=== PATIENT | female | born 1970 | race Caucasian/White ===

== ENCOUNTER 2017-04-04 14:39 | Inpatient (IN) | payer MEDICAID ==
[~2017-04-04] VITALS: Ht 160 cm; Wt 75.6 kg
[2017-04-04] MEDS ORDERED: ONDANSETRON 4 MG INJ IV STA (15:42)
[2017-04-04] MEDS ORDERED: KETOROLAC 30 MG INJ IV STA (15:42)
--- NOTE | 2017-04-04 15:50 | ERD ---
ER Documentation Chief Complaint Date/Time DATE: 04/04/17 TIME: 15:47 Chief Complaint right flank pain, vomiting and fever x 2 days HPI Patient is a 46-year-old female with no past medical history presents to the emergency department for concerns of right-sided flank pain, fevers and vomiting 2 days. Patient states the right flank pain is episodic in nature. Patient states the pain does radiate to her front right lower quadrant. Patient states she has been taking Advil which does relieve her symptoms. Patient last took Advil 1 tab around 1 PM today. Patient reports tactile fevers and chills. Patient also does admits to dysuria, frequency and urgency. Patient denies any hematuria. Patient denies any history of kidney stones. Patient denies any recent travel. No sick contacts. ROS All systems reviewed and are negative except as per history of present illness. Medications Home Meds Active Scripts Ibuprofen* (Motrin*) 400 Mg Tab, 400 MG PO Q6, #30 TAB Prov:MATTHEW BARRERA PA-C 04/04/17 Cephalexin* (Keflex*) 500 Mg Capsule, 500 MG PO TID for 14 Days, CAP Prov:MATTHEW BARRERA-C 04/04/17 Discontinued Scripts Cephalexin* (Keflex*) 500 Mg Capsule, 500 MG PO TID for 10 Days, CAP Prov:MATTHEW BARRERA PA-C 04/04/17 PMhx/Soc Medical and Surgical Hx: pt denies Medical Hx, pt denies Surgical Hx Hx Alcohol Use: Yes (Socially) Hx Substance Use: No Hx Tobacco Use: No Smoking Status: Never smoker FmHx Family History: diabetes Physical Exam Vitals Vital Signs Date Time Temp Pulse Resp B/P Pulse Ox O2 Delivery O2 Flow Rate FiO2 04/04/17 19:38 105.7 110 18 120/78 95 Room Air 04/04/17 14:43 102.8 126 18 146/67 98 Physical Exam GENERAL: Well-developed, well-nourished female. Appears in no acute distress. HEAD: Normocephalic, atraumatic. EYES: Pupils are equally reactive bilaterally. EOMs grossly intact. No conjunctival erythema. ENT: Moist mucous membranes. No uvula deviation. No kissing tonsils. NECK: Supple. No meningismus. Normal range of motion of the neck. LUNG: Clear to auscultation bilaterally. No rhonchi, wheezing, rales or coarse breath sounds. HEART: Regular rate and rhythm. No murmurs, rubs or gallops. ABDOMEN: Soft, nontender, and nondistended. Positive bowel sounds in all four quadrants. No rebound tenderness, no guarding. (-) McBurney's point tenderness. + Right CVA tenderness. BACK: No midline tenderness. EXTREMITIES: Equal pulses bilaterally. No peripheral clubbing, cyanosis or edema. No unilateral leg swelling. NEUROLOGIC: Alert and oriented. Moving all four extremities without any difficulty. Normal speech. Steady gait. SKIN: Normal color. Warm and dry. No rashes or lesions. Result Diagram: 04/04/17 1616 04/04/17 1616 Results 24 hrs Laboratory Tests Test 04/04/17 16:16 White Blood Count 9.110^3/ul Red Blood Count 5.0310^6/ul Hemoglobin 13.3g/dl Hematocrit 38.8% Mean Corpuscular Volume 77.1fl Mean Corpuscular Hemoglobin 26.4pg Mean Corpuscular Hemoglobin Concent 34.3g/dl Red Cell Distribution Width 14.3% Platelet Count 38243^3/UL Mean Platelet Volume 9.5fl Neutrophils % 82.5% Lymphocytes % 9.9% Monocytes % 7.2% Eosinophils % 0.0% Basophils % 0.1% Nucleated Red Blood Cells % 0.0/100WBC Neutrophils # 7.510^3/ul Lymphocytes # 0.910^3/ul Monocytes # 0.710^3/ul Eosinophils # 0.010^3/ul Basophils # 0.010^3/ul Nucleated Red Blood Cells # 0.010^3/ul Urine Color YELLOW Urine Clarity SLIGHTLY CLOUDY Urine pH 6.0 Urine Specific [place] 1.033 Urine Ketones TRACEmg/dL Urine Nitrite NEGATIVEmg/dL Urine Bilirubin NEGATIVEmg/dL Urine Urobilinogen NEGATIVEmg/dL Urine Leukocyte Esterase 2+Ar/ul Urine Microscopic RBC 4/HPF Urine Microscopic WBC 153/HPF Urine Squamous Epithelial Cells FEW/HPF Urine Bacteria FEW/HPF Urine Hemoglobin 2+mg/dL Urine Glucose 3+mg/dL Urine Total Protein 1+mg/dl Sodium Level 134mmol/L Potassium Level 3.8mmol/L Chloride Level 89mmol/L Carbon Dioxide Level 27mmol/L Anion Gap 22 Blood Urea Nitrogen 12mg/dl Creatinine 0.72mg/dl Glucose Level 389mg/dl Lactic Acid Level 2.0mmol/L Calcium Level 9.2mg/dl Total Bilirubin 1.1mg/dl Direct Bilirubin 0.00mg/dl Indirect Bilirubin 1.1mg/dl Aspartate Amino Transf (AST/SGOT) 28IU/L Alanine Aminotransferase (ALT/SGPT) 62IU/L Alkaline Phosphatase 106IU/L Total Protein 7.8g/dl Albumin 4.1g/dl Globulin 3.70g/dl Albumin/Globulin Ratio 1.10 Lipase 92U/L Current Medications Medications (Trade) Dose Ordered Sig/Marleni Route PRN Reason Start Time Stop Time Status Last Admin Dose Admin Ketorolac Tromethamine (Toradol) 30 mg ONCE STAT IV 04/04/17 15:42 04/04/17 15:45 DC 04/04/17 16:05 Ondansetron HCl 4 mg 4 mg ONCE STAT IV 04/04/17 15:42 04/04/17 15:45 DC 04/04/17 16:05 Sodium Chloride (NS) 1,000 ml @ 1,000 mls/hr Q1H ONCE IV 04/04/17 16:00 04/04/17 16:59 DC 04/04/17 16:05 Ceftriaxone Sodium (Rocephin) 1 gm ONCE ONCE IVPB 04/04/17 18:00 04/04/17 18:01 DC 04/04/17 17:49 Acetaminophen (Tylenol Tab) 1,000 mg ONCE STAT PO 04/04/17 18:52 04/04/17 18:53 DC 04/04/17 18:57 Procedures/MDM ED COURSE: The patient was stable throughout ED course. I kept the patient and/or family informed of laboratory and diagnostic imaging results throughout the ED course. DIAGNOSTIC IMAGING: Read by radiologist. DIAGNOSTIC IMAGING REPORT Patient: TYESHA FORTUNE : 1970 Age: 46 Sex: F [id number] DOS: 04/04/17 1542 Ordering MD: MATTHEW BARRERA PA-C Location: [facility] Room/Bed: PROCEDURE: CT Abdomen and Pelvis without contrast. CLINICAL INDICATION: Right flank pain with fever and vomiting. TECHNIQUE: CT scan of the abdomen and pelvis without contrast was performed on a multidetector high-resolution CT scanner. The patient was scanned without intravenous contrast. Coronal and sagittal reformatted images were obtained from the axial source images. Images were reviewed on a high-resolution PACS workstation. The total exam CTDI equals 10.42 mGy and the total exam DLP equals 616.60 mGy-cm. One or the following dose reduction techniques were used: -Automated exposure control. -Adjustment of the mA and/or KV according to patient's size. -Use of iterative reconstruction technique. COMPARISON: None. FINDINGS: Lung Bases: Unremarkable. GI:. Unremarkable. Liver: There is mild hepatomegaly measuring 21.0 cm in length with a decrease in the overall attenuation of the liver suggesting mild diffuse steatosis. Gallbladder: There is cholelithiasis without evidence of gallbladder wall thickening or biliary tree dilatation. Pancreas: Unremarkable. Spleen: Unremarkablel Adrenals: Unremarkable. Kidneys: There is no definite urolithiasis. There is facet edematous appearance of the right kidney with mild pyelocaliectasis and ureterectasis involving the proximal 2/3 of the ureter no definite ureteral lithiasis is seen. There is some perinephric stranding about the right kidney Bladder: Unremarkable. Pelvic Organs: Unremarkable. Skeleton: Normal for age. Other: There is a tiny umbilical hernia containing fat only. IMPRESSION: 1. Mild hepatosplenomegaly with a decrease in the overall attenuation of the liver suggesting diffuse steatosis. 2. Cholelithiasis without evidence of biliary tree dilatation. 3. Mild pyelocaliectasis and ureterectasis with edematous changes and perinephric stranding about the right kidney without evidence of ureteral lithiasis. This may indicate mild postobstructive edema from a recently passed stone. 4. Normal appearing appendix visualized. 5. Short segment of jejunum in the lower left abdomen but demonstrates a mild circumferential mucosal thickening of uncertain significance. This could indicate a mild localized enteritis. 6. Tiny umbilical hernia containing fat only. Note: A call report was made to Matthew Barrera Pa-c on 04/04/2017 4:52:25 PM. DIAGNOSTIC IMAGING REPORT Patient: TYESHA FORTUNE : 1970 Age: 46 Sex: F MR #: [id number] DOS: 04/04/17 1654 Ordering MD: MATTHEW BARRERA PA-C Location: [facility] Room/Bed: PROCEDURE: US Abdomen. CLINICAL INDICATION: abdominal pain TECHNIQUE: Multiple real-time images were acquired of the patient's right upper quadrant abdomen and retroperitoneum utilizing a high resolution transducer. COMPARISON: CT from 04/04/2017 FINDINGS: The liver demonstrates increased echogenicity. The liver is enlarged in size and no focal solid lesions are seen. The liver measures 21.1 cm in length. The portal vein is patent with normal direction of flow. No intrahepatic biliary dilatation is seen. Multiple calcified gallstones are identified within the gallbladder. There is no pericholecystic fluid or gallbladder wall thickening. The common bile duct measures 3.6 mm in maximal dimension. The pancreas is not well seen. No free fluid is identified. The right kidney is normal in size, and demonstrate normal echogenicity and cortical thickness. The right kidney measures 11.0 cm in long dimension. There is no evidence of hydronephrosis. There are no kidney stones. RPTAT: AA IMPRESSION: Cholelithiasis with no evidence of gallbladder wall thickening or pericholecystic fluid. Mild hepatomegaly with diffuse fatty infiltration of the liver. No evidence of hydronephrosis. .Hesham Ryan MD, Date Time Electronically viewed and signed by .Hesham Ryan MD, MD on 04/04/2017 17: 20 .S/ CC: MATTHEW BARRERA PA-C RPTAT: AACC Physician Doris Date Time Electronically viewed and signed by Physician Doris on 04/04/2017 16: 55 JH/ CC: MATTHEW BARRERA PA-C PROCEDURES: None. MEDICATIONS GIVEN: IV fluids, Toradol, Zofran Patient tolerated medication well with no adverse reactions. Patient reported improvement in pain. MEDICAL DECISION MAKING: This is a 46-year-old female presents with right flank pain intermittent fevers and vomiting 2 days. Patient also reported dysuria and urinary frequency. Vital signs were reviewed. Was febrile initial presentation with a temperature of 102.8 Fahrenheit. Patient was given Toradol here in the emergency department. Patient's temperature was noted to be down trending prior to discharge. Patient's pulse also did significantly improved.. Abdominal exam revealed right sided CVA tenderness. CBC showed no evidence of severe anemia. Patient did have a white count of 9.1. Patient's lactic acid was noted to be 2.0. CMP showed no evidence of severe acidosis, alkalosis, renal failure, or liver disease. Since glucose level was noted to be 398. Lipase showed no evidence of acute pancreatitis. Urinalysis did show 153 WBCs, 3+ glucose and 2 + leukocyte esterase. Urine test was negative. CT scan of the abdomen and pelvis showed 1. Mild hepatosplenomegaly with a decrease in the overall attenuation of the liver suggesting diffuse steatosis. 2. Cholelithiasis without evidence of biliary tree dilatation. 3. Mild pyelocaliectasis and ureterectasis with edematous changes and perinephric stranding about the right kidney without evidence of ureteral lithiasis. This may indicate mild postobstructive edema from a recently passed stone. 4. Normal appearing appendix visualized. 5. Short segment of jejunum in the lower left abdomen but demonstrates a mild circumferential mucosal thickening of uncertain significance. This could indicate a mild localized enteritis. 6. Tiny umbilical hernia containing fat only. Right upper quadrant ultrasound showed Cholelithiasis with no evidence of gallbladder wall thickening or pericholecystic fluid. Mild hepatomegaly with diffuse fatty infiltration of the liver. No evidence of hydronephrosis At this time, patient's presentation is most consistent with . I have a much lower clinical concern for acute coronary syndrome, AAA, mesenteric ischemia, lower lobe pneumonia, DKA, bowel perforation, cholecystitis, choledocholithiasis , ascending cholangitis, hepatic abscess, pancreatitis, PUD, gastritis, GERD, splenic rupture, diverticulitis, UTI, pyelonephritis, nephrolithiasis, appendicitis, constipation, , ectopic , PID, ovarian torsion or tubo-ovarian abscess. PRESCRIPTIONS: DISCHARGE: At this time, patient is stable for discharge and outpatient management. I have instructed the patient to follow-up with his/her primary care physician in 1-2 days. I have instructed the patient to promptly return to the ER at any time for any new or worsening symptoms including increased pain, nausea, vomiting, diarrhea, fever, weakness or LOC. The patient and/or family expressed understanding of and agreement with this plan. All questions were answered. Home care instructions were provided. Departure Diagnosis: Primary Impression: Pyelonephritis Additional Impressions: Kidney stone Cholelithiasis Cholelithiasis location: other site Biliary obstruction: without biliary obstruction Qualified Code: K80.80 - Biliary calculus of other site without obstruction Condition: Stable Additional Instructions: Call your primary care doctor TOMORROW for an appointment during the next 1-2 days.See the doctor sooner or return here if your condition worsens before your appointment time. MATTHEW BARRERA PA-C Apr 04, 2017 15:50
[2017-04-04] MEDS ORDERED: SOD CHLORIDE 0.9% 1,000 ML IV ONE (16:00)
[2017-04-04 16:35] LABS: BASOPHILS % 0.1 % (0.0-2.0); HEMATOCRIT 38.8 % (37.0-47.0); HEMOGLOBIN 13.3 g/dl (12.0-16.0); LYMPHOCYTES # 0.9 10^3/ul (0.8-2.9); LYMPHOCYTES % 9.9 % (15.0-51.0); MEAN CORPUSCULAR HEMOGLOBIN 26.4 pg (29.0-33.0); MEAN CORPUSCULAR HGB CONC 34.3 g/dl (32.0-37.0); MEAN CORPUSCULAR VOLUME 77.1 fl (82.0-101.0); MEAN PLATELET VOLUME 9.5 fl (7.4-10.4); MONOCYTE # 0.7 10^3/ul (0.3-0.9); MONOCYTES % 7.2 % (0.0-11.0); NEUTROPHIL # 7.5 10^3/ul (1.6-7.5); NEUTROPHILS % 82.5 % (39.0-77.0); PLATELET COUNT 254 10^3/UL (140-415); RED BLOOD COUNT 5.03 10^6/ul (4.20-5.40); RED CELL DISTRIBUTION WIDTH 14.3 % (11.5-14.5); WHITE BLOOD COUNT 9.1 10^3/ul (4.8-10.8)
[2017-04-04 16:40] LABS: ADD UMIC YES; UR ASCORBIC ACID NEGATIVE (NEGATIVE); UR BACTERIA FEW /HPF (NONE SEEN); UR BILIRUBIN (Dip) NEGATIVE (NEGATIVE); UR BLOOD (Dip) 2+ mg/dL (NEGATIVE); UR CLARITY SLIGHTLY CLOUDY (CLEAR); UR COLOR YELLOW (YELLOW); UR GLUCOSE (Dip) 3+ mg/dL (NEGATIVE); UR KETONES (Dip) TRACE mg/dL (NEGATIVE); UR LEUKOCYTE ESTERASE (Dip) 2+ Leu/ul (NEGATIVE); UR NITRITE (Dip) NEGATIVE (NEGATIVE); UR RBC 4 /HPF (0-5); UR SPECIFIC GRAVITY (Dip) 1.033 (1.003-1.030); UR SQUAMOUS EPITHELIAL CELL FEW /HPF (FEW); UR TOTAL PROTEIN (Dip) 1+ mg/dl (NEGATIVE); UR UROBILINOGEN (Dip) NEGATIVE (NEGATIVE)
--- NOTE | 2017-04-04 16:55 | RADRPT ---
PROCEDURE: CT Abdomen and Pelvis without contrast. CLINICAL INDICATION: Right flank pain with fever and vomiting. TECHNIQUE: CT scan of the abdomen and pelvis without contrast was performed on a multidetector hig h-resolution CT scanner. The patient was scanned without intravenous contrast. Coronal and sagittal reformatted images were obtained from the axial source images. Images were reviewed on a high-resol [employer] PACS workstation. The total exam CTDI equals 10.42 mGy and the total exam DLP equals 616.60 mG y-cm. One or the following dose reduction techniques were used: -Automated exposure control. -Adjustment of the mA and/or KV according to patient's size. -Use of iterative reconstruction technique. COMPARISON: None. FINDINGS: Lung Bases: Unremarkable. GI:. Unremarkable. Liver: There is mild hepatomegaly measuring 21.0 cm in length with a decrease in the overall attenua tion of the liver suggesting mild diffuse steatosis. Gallbladder: There is cholelithiasis without evidence of gallbladder wall thickening or biliary tree dilatation. Pancreas: Unremarkable. Spleen: Unremarkablel Adrenals: Unremarkable. Kidneys: There is no definite urolithiasis. There is facet edematous appearance of the right kidney with mild pyelocaliectasis and ureterectasis involving the proximal 2/3 of the ureter no definite u reteral lithiasis is seen. There is some perinephric stranding about the right kidney Bladder: Unremarkable. Pelvic Organs: Unremarkable. Skeleton: Normal for age. Other: There is a tiny umbilical hernia containing fat only. IMPRESSION: 1. Mild hepatosplenomegaly with a decrease in the overall attenuation of the liver suggesting diffus e steatosis. 2. Cholelithiasis without evidence of biliary tree dilatation. 3. Mild pyelocaliectasis and ureterectasis with edematous changes and perinephric stranding about t he right kidney without evidence of ureteral lithiasis. This may indicate mild postobstructive lorna a from a recently passed stone. 4. Normal appearing appendix visualized. 5. Short segment of jejunum in the lower left abdomen but demonstrates a mild circumferential mucos al thickening of uncertain significance. This could indicate a mild localized enteritis. 6. Tiny umbilical hernia containing fat only. Note: A call report was made to Song Alcantar Pa-c on 04/04/2017 4:52:25 PM. RPTAT: AACKristy Nils Carey, Physician Date Time Electronically viewed and signed by Nils Carey, Physician on 04/04/2017 16:55 /
[2017-04-04 16:59] LABS: ALBUMIN 4.1 g/dl (3.3-4.9); ALBUMIN/GLOBULIN RATIO 1.1; BILIRUBIN,INDIRECT 1.1 mg/dl (0-1.1); BILIRUBIN,TOTAL 1.1 mg/dl (0.2-1.3); CALCIUM 9.2 mg/dl (8.4-10.2); CREATININE 0.72 mg/dl (0.44-1.00); POTASSIUM 3.8 mmol/L (3.5-5.1); TOTAL PROTEIN 7.8 g/dl (6.1-8.1)
--- NOTE | 2017-04-04 17:20 | RADRPT ---
PROCEDURE: US Abdomen. CLINICAL INDICATION: abdominal pain TECHNIQUE: Multiple real-time images were acquired of the patient's right upper quadrant abdomen a nd retroperitoneum utilizing a high resolution transducer. COMPARISON: CT from 04/04/2017 FINDINGS: The liver demonstrates increased echogenicity. The liver is enlarged in size and no focal solid les ions are seen. The liver measures 21.1 cm in length. The portal vein is patent with normal direction of flow. No intrahepatic biliary dilatation is seen. Multiple calcified gallstones are identified within the gallbladder. There is no pericholecystic fl uid or gallbladder wall thickening. The common bile duct measures 3.6 mm in maximal dimension. The pancreas is not well seen. No free fluid is identified. The right kidney is normal in size, and demonstrate normal echogenicity and cortical thickness. The right kidney measures 11.0 cm in long dimension. There is no evidence of hydronephrosis. There are no kidney stones. RPTAT: AA IMPRESSION: Cholelithiasis with no evidence of gallbladder wall thickening or pericholecystic fluid. Mild hepatomegaly with diffuse fatty infiltration of the liver. No evidence of hydronephrosis. .Hesham Ryan MD, Date Time Electronically viewed and signed by .Hesham Ryan MD, MD on 04/04/2017 17:20 .S/
[2017-04-04] MEDS ORDERED: CEFTRIAXONE 1 GM INJ IVPB ONE (18:00)
[2017-04-04] MEDS ORDERED: CEPH-443 PO ×2 (18:05→18:10)
[2017-04-04] MEDS ORDERED: IBUP400T22 PO (18:10)
[2017-04-04] MEDS ORDERED: ACETAMINOPHEN 500 MG TAB PO STA (18:52)
[2017-04-04] MEDS ORDERED: SODIUM CHLORIDE 0.9% 1L BAG IV* STA (19:57)
[2017-04-04] MEDS ORDERED: SOD CHLORIDE 0.9% 1,000 ML IV SCH (20:39)
--- NOTE | 2017-04-04 20:39 | ERA ---
ER Documentation Chief Complaint Date/Time DATE: 04/04/17 TIME: 20:33 Chief Complaint right flank pain, vomiting and fever x 2 days HPI This is a 46-year-old female who was originally seen in the ED 2 and care transferred to mt. This is a female who has had right flank pain for 2 days with fever with nausea vomiting. The pain is described as constant dull and achy. Pain does not radiate. She does have dysuria no hematuria no pain in the abdomen. No diarrhea. No history of kidney stones. Pain is not worse after eating. No pain in the right upper quadrant ROS All systems reviewed and are negative except as per history of present illness. Medications Home Meds Active Scripts Ibuprofen* (Motrin*) 400 Mg Tab, 400 MG PO Q6, #30 TAB Prov:MATTHEW ALCANTAR PA-C 04/04/17 Cephalexin* (Keflex*) 500 Mg Capsule, 500 MG PO TID for 14 Days, CAP Prov:MATTHEW ALCANTAR PA-C 04/04/17 Discontinued Scripts Cephalexin* (Keflex*) 500 Mg Capsule, 500 MG PO TID for 10 Days, CAP Prov:MATTHEW ALCANTAR PA-C 04/04/17 Allergies Allergies: Coded Allergies: No Known Allergy (Unverified , 04/04/17) PMhx/Soc Medical and Surgical Hx: pt denies Medical Hx, pt denies Surgical Hx Hx Alcohol Use: Yes (Socially) Hx Substance Use: No Hx Tobacco Use: No Smoking Status: Never smoker FmHx Family History: No coronary disease Physical Exam Vitals Vital Signs Date Time Temp Pulse Resp B/P Pulse Ox O2 Delivery O2 Flow Rate FiO2 04/04/17 19:38 105.7 110 18 120/78 95 Room Air 04/04/17 18:50 102.5 103 22 112/71 96 Room Air 04/04/17 14:43 102.8 126 18 146/67 98 Physical Exam Const: Well-developed, well-nourished Head: Atraumatic, normocephalic Eyes: Normal Conjunctiva, PERRLA, EOMI, normal sclera, no nystagmus ENT: Normal External Ears, Nose and Mouth, moist mucus membranes. Neck: Full range of motion. No meningismus, no lymphadenopathy. Resp: Clear to auscultation bilaterally, no wheezing, rhonchi, rales Cardio: Tachycardia, no murmurs, S1 S2 present Abd: Soft, non tender x 4, non distended. Normal bowel sounds, no guarding or rebound, no pulsitile abdominal masses or bruits Skin: No petechiae or rashes, no ecchymosis , no maculopapular rash Back: No midline pain positive right flank tenderness Ext: No cyanosis, or edema, FROM x 4, normal inspection, neurovascularly intact x 4 Neur: Awake and alert, STR 5/5 x 4, sensation intact x 4, no focal findings, cerebellum intact Psych: Normal Mood and Affect Result Diagram: 04/04/17 1616 04/04/17 1616 Results 24 hrs Laboratory Tests Test 04/04/17 16:16 White Blood Count 9.110^3/ul Red Blood Count 5.0310^6/ul Hemoglobin 13.3g/dl Hematocrit 38.8% Mean Corpuscular Volume 77.1fl Mean Corpuscular Hemoglobin 26.4pg Mean Corpuscular Hemoglobin Concent 34.3g/dl Red Cell Distribution Width 14.3% Platelet Count 24488^3/UL Mean Platelet Volume 9.5fl Neutrophils % 82.5% Lymphocytes % 9.9% Monocytes % 7.2% Eosinophils % 0.0% Basophils % 0.1% Nucleated Red Blood Cells % 0.0/100WBC Neutrophils # 7.510^3/ul Lymphocytes # 0.910^3/ul Monocytes # 0.710^3/ul Eosinophils # 0.010^3/ul Basophils # 0.010^3/ul Nucleated Red Blood Cells # 0.010^3/ul Urine Color YELLOW Urine Clarity SLIGHTLY CLOUDY Urine pH 6.0 Urine Specific [place] 1.033 Urine Ketones TRACEmg/dL Urine Nitrite NEGATIVEmg/dL Urine Bilirubin NEGATIVEmg/dL Urine Urobilinogen NEGATIVEmg/dL Urine Leukocyte Esterase 2+Ar/ul Urine Microscopic RBC 4/HPF Urine Microscopic WBC 153/HPF Urine Squamous Epithelial Cells FEW/HPF Urine Bacteria FEW/HPF Urine Hemoglobin 2+mg/dL Urine Glucose 3+mg/dL Urine Total Protein 1+mg/dl Sodium Level 134mmol/L Potassium Level 3.8mmol/L Chloride Level 89mmol/L Carbon Dioxide Level 27mmol/L Anion Gap 22 Blood Urea Nitrogen 12mg/dl Creatinine 0.72mg/dl Glucose Level 389mg/dl Lactic Acid Level 2.0mmol/L Calcium Level 9.2mg/dl Total Bilirubin 1.1mg/dl Direct Bilirubin 0.00mg/dl Indirect Bilirubin 1.1mg/dl Aspartate Amino Transf (AST/SGOT) 28IU/L Alanine Aminotransferase (ALT/SGPT) 62IU/L Alkaline Phosphatase 106IU/L Total Protein 7.8g/dl Albumin 4.1g/dl Globulin 3.70g/dl Albumin/Globulin Ratio 1.10 Lipase 92U/L Current Medications Medications (Trade) Dose Ordered Sig/Marleni Route PRN Reason Start Time Stop Time Status Last Admin Dose Admin Ketorolac Tromethamine (Toradol) 30 mg ONCE STAT IV 04/04/17 15:42 04/04/17 15:45 DC 04/04/17 16:05 Ondansetron HCl 4 mg 4 mg ONCE STAT IV 04/04/17 15:42 04/04/17 15:45 DC 04/04/17 16:05 Sodium Chloride (NS) 1,000 ml @ 1,000 mls/hr Q1H ONCE IV 04/04/17 16:00 04/04/17 16:59 DC 04/04/17 16:05 Ceftriaxone Sodium (Rocephin) 1 gm ONCE ONCE IVPB 04/04/17 18:00 04/04/17 18:01 DC 04/04/17 17:49 Acetaminophen (Tylenol Tab) 1,000 mg ONCE STAT PO 04/04/17 18:52 04/04/17 18:53 DC 04/04/17 18:57 Sodium Chloride (NS) 2,250 ml BOLUS OVER 2 HOURS STAT IV* 04/04/17 19:57 04/04/17 20:09 DC 04/04/17 20:17 Procedures/MDM PROCEDURE: CT Abdomen and Pelvis without contrast. CLINICAL INDICATION: Right flank pain with fever and vomiting. TECHNIQUE: CT scan of the abdomen and pelvis without contrast was performed on a multidetector high-resolution CT scanner. The patient was scanned without intravenous contrast. Coronal and sagittal reformatted images were obtained from the axial source images. Images were reviewed on a high-resolution PACS workstation. The total exam CTDI equals 10.42 mGy and the total exam DLP equals 616.60 mGy-cm. One or the following dose reduction techniques were used: -Automated exposure control. -Adjustment of the mA and/or KV according to patient's size. -Use of iterative reconstruction technique. COMPARISON: None. FINDINGS: Lung Bases: Unremarkable. GI:. Unremarkable. Liver: There is mild hepatomegaly measuring 21.0 cm in length with a decrease in the overall attenuation of the liver suggesting mild diffuse steatosis. Gallbladder: There is cholelithiasis without evidence of gallbladder wall thickening or biliary tree dilatation. Pancreas: Unremarkable. Spleen: Unremarkablel Adrenals: Unremarkable. Kidneys: There is no definite urolithiasis. There is facet edematous appearance of the right kidney with mild pyelocaliectasis and ureterectasis involving the proximal 2/3 of the ureter no definite ureteral lithiasis is seen. There is some perinephric stranding about the right kidney Bladder: Unremarkable. Pelvic Organs: Unremarkable. Skeleton: Normal for age. Other: There is a tiny umbilical hernia containing fat only. IMPRESSION: 1. Mild hepatosplenomegaly with a decrease in the overall attenuation of the liver suggesting diffuse steatosis. 2. Cholelithiasis without evidence of biliary tree dilatation. 3. Mild pyelocaliectasis and ureterectasis with edematous changes and perinephric stranding about the right kidney without evidence of ureteral lithiasis. This may indicate mild postobstructive edema from a recently passed stone. 4. Normal appearing appendix visualized. 5. Short segment of jejunum in the lower left abdomen but demonstrates a mild circumferential mucosal thickening of uncertain significance. This could indicate a mild localized enteritis. 6. Tiny umbilical hernia containing fat only. Note: A call report was made to Matthew Alcantar Pa-c on 04/04/2017 4:52:25 PM. RPTAT: AACC Physician Doris Date Time Electronically viewed and signed by Physician Doris on 04/04/2017 16: 55 JH/ CC: MATTHEW ALCANTAR PA-C PROCEDURE: US Abdomen. CLINICAL INDICATION: abdominal pain TECHNIQUE: Multiple real-time images were acquired of the patient's right upper quadrant abdomen and retroperitoneum utilizing a high resolution transducer. COMPARISON: CT from 04/04/2017 FINDINGS: The liver demonstrates increased echogenicity. The liver is enlarged in size and no focal solid lesions are seen. The liver measures 21.1 cm in length. The portal vein is patent with normal direction of flow. No intrahepatic biliary dilatation is seen. Multiple calcified gallstones are identified within the gallbladder. There is no pericholecystic fluid or gallbladder wall thickening. The common bile duct measures 3.6 mm in maximal dimension. The pancreas is not well seen. No free fluid is identified. The right kidney is normal in size, and demonstrate normal echogenicity and cortical thickness. The right kidney measures 11.0 cm in long dimension. There is no evidence of hydronephrosis. There are no kidney stones. RPTAT: AA IMPRESSION: Cholelithiasis with no evidence of gallbladder wall thickening or pericholecystic fluid. Mild hepatomegaly with diffuse fatty infiltration of the liver. No evidence of hydronephrosis. .Hesham Ryan MD, MD Date Time Electronically viewed and signed by .Hesham Ryan MD, MD on 04/04/2017 17: 20 .S/ CC: MATTHEW ALCANTAR PA-C The patient was found to have a lactate of 2.0 and the physician digital assistant thought this is not sepsis. I did order blood cultures and sepsis fluid resuscitation. The patient was already given antibiotics before I saw the patient. For under sepsis criteria the patient got antibiotics before blood culture and did not receive IV fluid resuscitation in a timely fashion this was due to the physician digital assistant thinking that a lactate of 2.0 is not sepsis. Admit MDM: Patient's infectious symptoms have not stabilized and the patient is at risk of rapid decompensation. The patient will be admitted for careful hydration, antibiotic therapy, and infectious source control. Severe Sepsis criteria: Infectious source: Urine/pyelonephritis End organ damage indicated by: Pyelonephritis on CT scan Lactate > 2.0 mmol/L Hypotension (SBP < 90 or >40 mmHG drop or MAP < 65) Acute Resp Failure (sat < 92% w/o oxygen) Drawing In Hand > 2.0 INR > 1.5 Plt < 100 Bili > 2 Sepsis Management: Time of recognition of severe sepsis/septic shock: 1900 Within 3 hours of recognition: Blood cultures x 2 before broad-spectrum antibiotics: No 30 ml/kg NS bolus completed Initial lactate 2.0 Repeat lactate pending Accepting Care Team Current data and ongoing care discussed. Time: Admitting Physician: Justin Clinical Studies Specialist(s): Outstanding Data: None Critical Care Time: 30 minutes Treatments/Evaluations: Close monitoring and treatment of unstable vital signs, cardiorespiratory, and neurologic status, while maintaining tight balance of fluid, respiratory, and cardiac interventions. This includes the administration of emergency fluid management while maintaining close respiratory support as well as the provision of immediate and broad-spectrum antibiotic therapy, while performing a simultaneous assessment for possible sources in order to direct targeted therapy. This time includes discussing the case with the patient and the patient's family. This time also includes the consideration for invasive and chemical support to prevent cardiopulmonary collapse. This time does not include all procedures stated elsewhere in this record. This time also includes reviewing old records, labs and radiological studies. This time includes examining and re-examining the patient. Additionally, this time also includes arranging care with admitting and consulting physicians. Departure Diagnosis: Primary Impression: Sepsis Qualified Code: A41.9 - Sepsis, due to unspecified organism Additional Impressions: Pyelonephritis Cholelithiasis Qualified Code: K80.80 - Biliary calculus of other site without obstruction Condition: Stable Patient Instructions: Kidney Stone, Passed, Pyelonephritis, Female (Adult) Referrals: JERRY GURROLA MD,EFFIE WEN,STEVEN ELDRIDGE,DALIA GANDHI MD,RIDDHI TURPIN MD= [facility] YOU HAVE RECEIVED A MEDICAL SCREENING EXAM AND THE RESULTS INDICATE THAT YOU DO NOT HAVE A CONDITION THAT REQUIRES URGENT TREATMENT IN THE EMERGENCY DEPARTMENT. FURTHER EVALUATION AND TREATMENT OF YOUR CONDITION CAN WAIT UNTIL YOU ARE SEEN IN YOUR DOCTORS OFFICE WITHIN THE NEXT 1-2 DAYS. IT IS YOUR RESPONSIBILITY TO MAKE AN APPOINTMENT FOR FOLOW-UP CARE. IF YOU HAVE A PRIMARY DOCTOR --you should call your primary doctor and schedule an appointment IF YOU DO NOT HAVE A PRIMARY DOCTOR YOU CAN CALL OUR PHYSICIAN REFERRAL HOTLINE AT IF YOU CAN NOT AFFORD TO SEE A PHYSICIAN YOU CAN CHOSE FROM THE FOLLOWING [facility] [address] [facility] [address] [facility] [address] [facility] [address] [facility] [address] [facility]. [facility] [address] [facility]. [facility] YOU HAVE RECEIVED A MEDICAL SCREENING EXAM AND THE RESULTS INDICATE THAT YOU DO NOT HAVE A CONDITION THAT REQUIRES URGENT TREATMENT IN THE EMERGENCY DEPARTMENT. FURTHER EVALUATION AND TREATMENT OF YOUR CONDITION CAN WAIT UNTIL YOU ARE SEEN IN YOUR DOCTORS OFFICE WITHIN THE NEXT 1-2 DAYS. IT IS YOUR RESPONSIBILITY TO MAKE AN APPOINTMENT FOR FOLOW-UP CARE. IF YOU HAVE A PRIMARY DOCTOR --you should call your primary doctor and schedule and appointment IF YOU DO NOT HAVE A PRIMARY DOCTOR YOU CAN CALL OUR PHYSICIAN REFERRAL HOTLINE AT . IF YOU CAN NOT AFFORD TO SEE A PHYSICIAN YOU CAN CHOSE FROM THE FOLLOWING [facility]: [facility] [address] [place] [address] [facility] [address] [place] [address] [facility] [address] [place] [address] Additional Instructions: Call your primary care doctor TOMORROW for an appointment during the next 1-2 days.See the doctor sooner or return here if your condition worsens before your appointment time. Follow up with a urologist as needed if symptoms persist. BROOKLYNN BENÍTEZ DO Apr 04, 2017 20:38
[2017-04-04] MEDS ORDERED: ONDANSETRON 4 MG INJ IV PRN (21:00)
[2017-04-04] MEDS ORDERED: ACETAMINOPHEN 325 MG TAB PO PRN (21:00)
[2017-04-04 22:49] VITALS: TEMP 99.1
[2017-04-05] VITALS (12 sets, daily range): BP systolic 101–124; BP diastolic 56–67; PULSE 75–103; RESP 18–20; Ht 160 cm; Wt 75.6 kg
[2017-04-05] MEDS ORDERED: ACCU-CHEK XX SCH (02:00)
[2017-04-05] MEDS ORDERED: ONDANSETRON 4 MG INJ IV PRN (02:00)
[2017-04-05] MEDS ORDERED: VANCOMYCIN IV PER PHARMACY XX SCH (02:00)
[2017-04-05] MEDS ORDERED: morphine 4 MG/ML VIAL IV PRN (02:00)
[2017-04-05] MEDS: ACETAMINOPHEN 325 MG TAB PO PRN ×2 (02:26→14:50)
[2017-04-05] MEDS ORDERED: GLUCAGON 1 MG INJ IM PRN (02:30)
[2017-04-05] MEDS ORDERED: GLUCOSE GEL 15 GRAM TUBE PO PRN ×2 (02:30)
[2017-04-05] MEDS ORDERED: DEXTROSE 50% 50 ML SYRINGE IV PRN ×2 (02:30)
[2017-04-05] MEDS ORDERED: INSULIN GLARGINE [LANtus] 3 ML PEN SC ONE (02:30)
[2017-04-05] MEDS ORDERED: GLUCOSE GEL 15 GRAM TUBE BUCCAL PRN (02:30)
[2017-04-05] MEDS: ACCU-CHEK XX SCH (02:54)
[2017-04-05] MEDS ORDERED: VANCOMYCIN 1.5 GM in SOD CHLORIDE 0.9% 250 ML IVPB ONE (03:00)
--- NOTE | 2017-04-05 03:25 | HP ---
Date/Time of Note Date/Time of Note DATE: 04/05/17 TIME: 03:16 Assessment/Plan VTE Prophylaxis VTE Prophylaxis Intervention: SCD's Assessment/Plan Assessment/Plan 1. Sepsis, as evidenced by fever and tachycardia with a lactic acidosis, secondary to pyelonephritis -Broad-spectrum antibiotics, IV fluid and pain management -Follow-up on urine culture and blood culture -ID consult 2. Right sided pyelonephritis: See #1 3. Newly diagnosed diabetes -will check A1c in the morning -will be placed on insulin while in-house 4. Mild hyponatremia -Normal saline IV fluid HPI/ROS Admit Date/Time Admit Date/Time Apr 04, 2017 at 20:39 Hx of Present Illness This is a 46-year-old female with no significant past medical history who presented to the emergency department complaining of right flank pain and fever of 2 days duration. She also reported associated nausea and nonbloody nonbilious vomiting. When she presented to the ER she was febrile with a temperature of almost 103, which actually further increased to a temperature of 105.7. Her initial heart rate was 126. Lactic acid was 2. WBC is 9.1. Urinalysis consistent with UTI. CT abdomen pelvis shows right kidney perinephric stranding and edematous change likely a result of post obstructive edema from past. Also seen on the CAT scan was cholelithiasis without ductal dilatation. Laboratory results also showed sodium of 134 and a glucose of 389. Patient denies a history of diabetes and she said she does not remember the last time she was actually seen by a doctor. . PMH/Family/Social Social History Alcohol Use: none Smoking Status: Never smoker Drug Use: none Exam/Review of Systems Vital Signs Vitals Vital Signs Date Time Temp Pulse Resp B/P Pulse Ox O2 Delivery O2 Flow Rate FiO2 04/05/17 00:27 103 04/05/17 00:00 98.0 20 124/67 93 04/04/17 22:49 Room Air Exam Constitutional: alert, oriented, well developed Head: atraumatic, normocephalic Eyes: EOMI, PERRL Respiratory: clear to auscultation, normal air movement Cardiovascular: other (Tachycardic with regular rhythm) Gastrointestinal: other (Minimal right flank tenderness), soft Labs Result Diagram: 04/04/17 1616 04/04/17 1616 Medications Medications Current Medications Sodium Chloride (NS) 1,000 ml @ 80 mls/hr [id number] IV Last administered on 22:02; Admin Dose 80 MLS/HR; Start 04/04/17 at 20:39; Stop 04/05/17 at 09:08 Diagnostic Test (Pha) (Accu-Chek) 1 ea 02 XX Last administered on 04/05/17 02: 54; Admin Dose 1 EA; Start 04/05/17 at 02:00 Insulin Glargine (Lantus) 15 unit DAILY@20 SC ; Start 04/05/17 at 20:00 Acetaminophen (Tylenol Tab) 650 mg Q6H PRN PO PAIN AND OR ELEVATED TEMP Last administered on 04/05/17 02:26; Admin Dose 650 MG; Start 04/05/17 at 02:00 Ondansetron HCl (Zofran Inj) 4 mg Q6H PRN IV NAUSEA AND/OR VOMITING; Start 04/05 at 02:00 Morphine Sulfate 3 mg 3 mg Q4H PRN IV PAIN; Start 04/05/17 at 02:00 Cefepime HCl (Maxipime 1gm/50 ml (Pmx)) 50 ml @ 100 mls/hr Q12 IVPB ; Start 04/05/17 at 09:00 Miscellaneous Information 1 ea NOTE XX ; Start 04/05/17 at 02:30 Glucose (Glutose) 15 gm Q15M PRN PO DECREASED GLUCOSE; Start 04/05/17 at 02:30 Glucose (Glutose) 22.5 gm Q15M PRN PO DECREASED GLUCOSE; Start 04/05/17 at 02:30 Dextrose (D50w Syringe) 25 ml Q15M PRN IV DECREASED GLUCOSE; Start 04/05/17 at 02:30 Dextrose (D50w Syringe) 50 ml Q15M PRN IV DECREASED GLUCOSE; Start 04/05/17 at 02:30 Glucagon (Glucagen) 1 mg Q15M PRN IM DECREASED GLUCOSE; Start 04/05/17 at 02:30 Glucose 15 gm 15 gm Q15M PRN BUCCAL DECREASED GLUCOSE; Start 04/05/17 at 02:30 Vancomycin HCl 1.5 gm/Sodium Chloride 250 ml @ 83.333 mls/ hr ONCE ONCE IVPB ; Start 04/05/17 at 03:00; Stop 04/05/17 at 05:59 Vancomycin HCl (Vancocin) 250 ml @ 125 mls/hr Q12H IVPB ; Start 04/05/17 at 15: 00 TAZ PRIETO MD Apr 05, 2017 03:25
[2017-04-05 06:45] LABS: HEMATOCRIT 33.2 % (37.0-47.0); HEMOGLOBIN 10.9 g/dl (12.0-16.0); MEAN CORPUSCULAR HEMOGLOBIN 26.3 pg (29.0-33.0); MEAN CORPUSCULAR HGB CONC 32.8 g/dl (32.0-37.0); MEAN PLATELET VOLUME 9.8 fl (7.4-10.4); PLATELET COUNT 210 10^3/UL (140-415); RED BLOOD COUNT 4.15 10^6/ul (4.20-5.40); RED CELL DISTRIBUTION WIDTH 14.6 % (11.5-14.5); WHITE BLOOD COUNT 7.1 10^3/ul (4.8-10.8)
[2017-04-05 06:55] LABS: POSITIVE DIFF @See below
[2017-04-05 07:21] LABS: ALBUMIN 3.1 g/dl (3.3-4.9); ALBUMIN/GLOBULIN RATIO 0.93; BILIRUBIN,INDIRECT 0.5 mg/dl (0-1.1); BILIRUBIN,TOTAL 0.5 mg/dl (0.2-1.3); CALCIUM 7.8 mg/dl (8.4-10.2); CHOL/HDL RATIO 4.7 RATIO; CREATININE 0.66 mg/dl (0.44-1.00); MAGNESIUM 1.9 mg/dl (1.7-2.5); POTASSIUM 3.3 mmol/L (3.5-5.1); TOTAL PROTEIN 6.4 g/dl (6.1-8.1)
[2017-04-05] MEDS ORDERED: INSULIN ASPART [NOVOLOG] 3 ML PEN SC SCH (07:55)
[2017-04-05] MEDS: CEFEPIME 1GM/50 ML (PMX) 50 ML IVPB SCH ×2 (08:30→21:07)
[2017-04-05] MEDS: INSULIN ASPART [NOVOLOG] 3 ML PEN SC SCH ×6 (08:35→21:00)
[2017-04-05 13:48] LABS: LYMPHOCYTES # 1.2 10^3/ul (0.8-2.9); MONOCYTE # 0.4 10^3/ul (0.3-0.9); NEUTROPHIL # 4.6 10^3/ul (1.6-7.5)
[2017-04-05] MEDS ORDERED: VANCOMYCIN 1 GM in NS 250 ML IVPB SCH (15:00)
[2017-04-05] MEDS ORDERED: POTASSIUM CHLORIDE (SR) 20 MEQ TAB PO STA (15:38)
[2017-04-05] MEDS ORDERED: INSULIN GLARGINE [LANtus] 3 ML PEN SC SCH (20:00)
[2017-04-05] MEDS: INSULIN GLARGINE [LANtus] 3 ML PEN SC SCH (21:22)
[2017-04-06] VITALS (13 sets, daily range): BP systolic 106–139; BP diastolic 56–82; PULSE 77–85; RESP 16–20
[2017-04-06] MEDS: ACCU-CHEK XX SCH (02:00)
[2017-04-06 06:27] LABS: BASOPHILS % 0.4 % (0.0-2.0); EOSINOPHILS % 0.2 % (0.0-7.0); HEMATOCRIT 33.3 % (37.0-47.0); HEMOGLOBIN 10.8 g/dl (12.0-16.0); LYMPHOCYTES # 1.3 10^3/ul (0.8-2.9); LYMPHOCYTES % 23.8 % (15.0-51.0); MEAN CORPUSCULAR HEMOGLOBIN 25.8 pg (29.0-33.0); MEAN CORPUSCULAR HGB CONC 32.4 g/dl (32.0-37.0); MEAN CORPUSCULAR VOLUME 79.5 fl (82.0-101.0); MEAN PLATELET VOLUME 9.7 fl (7.4-10.4); MONOCYTE # 0.6 10^3/ul (0.3-0.9); MONOCYTES % 11.6 % (0.0-11.0); NEUTROPHIL # 3.4 10^3/ul (1.6-7.5); NEUTROPHILS % 63.6 % (39.0-77.0); PLATELET COUNT 209 10^3/UL (140-415); RED BLOOD COUNT 4.19 10^6/ul (4.20-5.40); RED CELL DISTRIBUTION WIDTH 14.6 % (11.5-14.5); WHITE BLOOD COUNT 5.3 10^3/ul (4.8-10.8)
[2017-04-06 06:48] LABS: CALCIUM 8.3 mg/dl (8.4-10.2); CREATININE 0.62 mg/dl (0.44-1.00); POTASSIUM 3.8 mmol/L (3.5-5.1)
[2017-04-06] MEDS: CEFEPIME 1GM/50 ML (PMX) 50 ML IVPB SCH (08:34)
[2017-04-06] MEDS: INSULIN ASPART [NOVOLOG] 3 ML PEN SC SCH ×7 (08:38→21:00)
--- NOTE | 2017-04-06 16:30 | PN ---
Date/Time of Note Date/Time of Note DATE: 04/06/17 TIME: 16:26 Assessment/Plan VTE Prophylaxis VTE Prophylaxis Intervention: ambulation Lines/Catheters IV [facility] Urinary Cath still in place: No Assessment/Plan Chief Complaint/Hosp Course 1. Sepsis, as evidenced by fever and tachycardia with a lactic acidosis secondary to pyelonephritis-improving, but still having fevers -Urine culture showing E. coli, DC cefepime and start Rocephin -Blood cultures are negative at 1 day 2. Mild hyponatremia-resolved 3. Newly diagnosed diabetes -A1c 10.1, family life educator consultation -Continue insulin regimen Prophylaxis: Ambulation Problems: Subjective 24 Hr Interval Summary Constitutional: no complaints Exam/Review of Systems Vital Signs Vitals Vital Signs Date Time Temp Pulse Resp B/P Pulse Ox O2 Delivery O2 Flow Rate FiO2 04/06/17 16:25 80 04/06/17 15:44 98.6 20 133/65 95 04/04/17 22:49 Room Air Intake and Output 04/05/17 04/05/17 04/06/17 15:00 23:00 07:00 Intake Total 1500 ml 500 ml Balance 1500 ml 500 ml Exam Constitutional: alert, oriented Respiratory: clear to auscultation Cardiovascular: regular rate and rhythm Gastrointestinal: soft, No distended Musculoskeletal: nl extremities to inspection Results Result Diagram: 04/06/17 0551 04/06/17 0551 Results 24 hrs Laboratory Tests Test 04/05/17 17:22 04/05/17 21:05 04/06/17 05:51 04/06/17 07:57 Bedside Glucose 195 165 175 White Blood Count 5.3 # Red Blood Count 4.19 L Hemoglobin 10.8 L Hematocrit 33.3 L Mean Corpuscular Volume 79.5 L Mean Corpuscular Hemoglobin 25.8 L Mean Corpuscular Hemoglobin Concent 32.4 Red Cell Distribution Width 14.6 H Platelet Count 209 Mean Platelet Volume 9.7 Neutrophils % 63.6 Lymphocytes % 23.8 Monocytes % 11.6 H Eosinophils % 0.2 Basophils % 0.4 Nucleated Red Blood Cells % 0.0 Neutrophils # 3.4 Lymphocytes # 1.3 Monocytes # 0.6 Eosinophils # 0.0 Basophils # 0.0 Nucleated Red Blood Cells # 0.0 Sodium Level 139 Potassium Level 3.8 Chloride Level 99 Carbon Dioxide Level 27 Anion Gap 17 H Blood Urea Nitrogen 9 Creatinine 0.62 Glucose Level 161 # Calcium Level 8.3 L Test 04/06/17 12:08 Bedside Glucose 161 Medications Medications Current Medications Diagnostic Test (Pha) (Accu-Chek) 1 ea 02 XX Last administered on 04/05/17 02: 54; Admin Dose 1 EA; Start 04/05/17 at 02:00 Acetaminophen (Tylenol Tab) 650 mg Q6H PRN PO PAIN AND OR ELEVATED TEMP Last administered on 04/05/17 14:50; Admin Dose 650 MG; Start 04/05/17 at 02:00 Ondansetron HCl (Zofran Inj) 4 mg Q6H PRN IV NAUSEA AND/OR VOMITING; Start 04/05 at 02:00 Morphine Sulfate 3 mg 3 mg Q4H PRN IV PAIN; Start 04/05/17 at 02:00 Cefepime HCl (Maxipime 1gm/50 ml (Pmx)) 50 ml @ 100 mls/hr Q12 IVPB Last administered on 04/06/17 08:34; Admin Dose 100 MLS/HR; Start 04/05/17 at 09:00 Miscellaneous Information 1 ea NOTE XX ; Start 04/05/17 at 02:30 Glucose (Glutose) 15 gm Q15M PRN PO DECREASED GLUCOSE; Start 04/05/17 at 02:30 Glucose (Glutose) 22.5 gm Q15M PRN PO DECREASED GLUCOSE; Start 04/05/17 at 02:30 Dextrose (D50w Syringe) 25 ml Q15M PRN IV DECREASED GLUCOSE; Start 04/05/17 at 02:30 Dextrose (D50w Syringe) 50 ml Q15M PRN IV DECREASED GLUCOSE; Start 04/05/17 at 02:30 Glucagon (Glucagen) 1 mg Q15M PRN IM DECREASED GLUCOSE; Start 04/05/17 at 02:30 Glucose (Glutose) 15 gm Q15M PRN BUCCAL DECREASED GLUCOSE; Start 04/05/17 at 02: 30 Insulin Glargine (Lantus) 16 unit DAILY@20 SC Last administered on 04/05/17 21: 22; Admin Dose 16 UNIT; Start 04/05/17 at 20:00 ALANA DEWITT Apr 06, 2017 16:30
[2017-04-06] MEDS: CEFTRIAXONE 1 GM/50 ML (PMX) 50 ML IVPB SCH (16:40)
[2017-04-06] MEDS: INSULIN GLARGINE [LANtus] 3 ML PEN SC SCH (20:42)
[2017-04-07] VITALS (12 sets, daily range): BP systolic 125–144; BP diastolic 68–86; PULSE 71–93; RESP 16–18
[2017-04-07] MEDS: ACCU-CHEK XX SCH (02:00)
[2017-04-07 06:42] LABS: BASOPHILS % 0.4 % (0.0-2.0); EOSINOPHILS % 0.7 % (0.0-7.0); HEMATOCRIT 35.8 % (37.0-47.0); HEMOGLOBIN 12.1 g/dl (12.0-16.0); LYMPHOCYTES # 1.6 10^3/ul (0.8-2.9); LYMPHOCYTES % 34.7 % (15.0-51.0); MEAN CORPUSCULAR HEMOGLOBIN 26.3 pg (29.0-33.0); MEAN CORPUSCULAR HGB CONC 33.8 g/dl (32.0-37.0); MEAN CORPUSCULAR VOLUME 77.8 fl (82.0-101.0); MEAN PLATELET VOLUME 9.3 fl (7.4-10.4); MONOCYTE # 0.6 10^3/ul (0.3-0.9); MONOCYTES % 13.3 % (0.0-11.0); NEUTROPHIL # 2.3 10^3/ul (1.6-7.5); NEUTROPHILS % 50.5 % (39.0-77.0); PLATELET COUNT 277 10^3/UL (140-415); RED CELL DISTRIBUTION WIDTH 14.2 % (11.5-14.5); WHITE BLOOD COUNT 4.5 10^3/ul (4.8-10.8)
[2017-04-07 07:11] LABS: CREATININE 0.63 mg/dl (0.44-1.00); MAGNESIUM 2.2 mg/dl (1.7-2.5); POTASSIUM 3.6 mmol/L (3.5-5.1)
[2017-04-07] MEDS: INSULIN ASPART [NOVOLOG] 3 ML PEN SC SCH ×7 (07:46→20:32)
[2017-04-07] MEDS ORDERED: VANCOMYCIN IV PER PHARMACY XX SCH (10:00)
[2017-04-07] MEDS ORDERED: VANCOMYCIN 1.5 GM in SOD CHLORIDE 0.9% 250 ML IVPB ONE (11:00)
--- NOTE | 2017-04-07 13:35 | PN ---
Date/Time of Note Date/Time of Note DATE: 04/07/17 TIME: 13:32 Assessment/Plan VTE Prophylaxis VTE Prophylaxis Intervention: ambulation Lines/Catheters IV C[facility]ter Type (from [facility]): Saline Lock Urinary Cath still in place: No Assessment/Plan Chief Complaint/Hosp Course 1. Sepsis, as evidenced by fever and tachycardia with a lactic acidosis secondary to pyelonephritis-improving but still having fevers -Urine culture showing E. coli, DC cefepime and start Rocephin -Blood cultures showing gram-positive cocci in 1 out of 2 cultures, start Vanco and have obtained an ID consultation 2. Mild hyponatremia-resolved 3. Newly diagnosed diabetes-sugars improved but still mildly elevated -A1c 10.1, physical therapy asst consultation appreciated -Increase insulin regimen Prophylaxis: Ambulation Problems: Subjective 24 Hr Interval Summary Constitutional: no complaints Exam/Review of Systems Vital Signs Vitals Vital Signs Date Time Temp Pulse Resp B/P Pulse Ox O2 Delivery O2 Flow Rate FiO2 04/07/17 11:24 98.6 88 18 144/78 95 04/04/17 22:49 Room Air Intake and Output 04/06/17 04/06/17 04/07/17 15:00 23:00 07:00 Intake Total 1050 ml 500 ml Balance 1050 ml 500 ml Exam Constitutional: alert Respiratory: clear to auscultation Cardiovascular: regular rate and rhythm Gastrointestinal: soft, No distended Musculoskeletal: nl extremities to inspection Results Result Diagram: 04/07/17 0550 04/07/17 0550 Results 24 hrs Laboratory Tests Test 04/06/17 17:13 04/06/17 20:28 04/07/17 05:50 04/07/17 07:43 Bedside Glucose 122 178 128 White Blood Count 4.5 L Red Blood Count 4.60 Hemoglobin 12.1 Hematocrit 35.8 L Mean Corpuscular Volume 77.8 L Mean Corpuscular Hemoglobin 26.3 L Mean Corpuscular Hemoglobin Concent 33.8 Red Cell Distribution Width 14.2 Platelet Count 277 # Mean Platelet Volume 9.3 Neutrophils % 50.5 Lymphocytes % 34.7 Monocytes % 13.3 H Eosinophils % 0.7 Basophils % 0.4 Nucleated Red Blood Cells % 0.0 Neutrophils # 2.3 Lymphocytes # 1.6 Monocytes # 0.6 Eosinophils # 0.0 Basophils # 0.0 Nucleated Red Blood Cells # 0.0 Sodium Level 140 Potassium Level 3.6 Chloride Level 97 Carbon Dioxide Level 29 Anion Gap 18 H Blood Urea Nitrogen 11 Creatinine 0.63 Glucose Level 118 # Calcium Level 9.0 Magnesium Level 2.2 Test 04/07/17 11:36 Bedside Glucose 159 Medications Medications Current Medications Diagnostic Test (Pha) (Accu-Chek) 1 ea 02 XX Last administered on 04/05/17 02: 54; Admin Dose 1 EA; Start 04/05/17 at 02:00 Acetaminophen (Tylenol Tab) 650 mg Q6H PRN PO PAIN AND OR ELEVATED TEMP Last administered on 04/05/17 14:50; Admin Dose 650 MG; Start 04/05/17 at 02:00 Ondansetron HCl (Zofran Inj) 4 mg Q6H PRN IV NAUSEA AND/OR VOMITING; Start 04/05 at 02:00 Morphine Sulfate (morphine) 3 mg Q4H PRN IV PAIN; Start 04/05/17 at 02:00 Miscellaneous Information 1 ea NOTE XX ; Start 04/05/17 at 02:30 Glucose (Glutose) 15 gm Q15M PRN PO DECREASED GLUCOSE; Start 04/05/17 at 02:30 Glucose (Glutose) 22.5 gm Q15M PRN PO DECREASED GLUCOSE; Start 04/05/17 at 02:30 Dextrose (D50w Syringe) 25 ml Q15M PRN IV DECREASED GLUCOSE; Start 04/05/17 at 02:30 Dextrose (D50w Syringe) 50 ml Q15M PRN IV DECREASED GLUCOSE; Start 04/05/17 at 02:30 Glucagon (Glucagen) 1 mg Q15M PRN IM DECREASED GLUCOSE; Start 04/05/17 at 02:30 Glucose (Glutose) 15 gm Q15M PRN BUCCAL DECREASED GLUCOSE; Start 04/05/17 at 02: 30 Insulin Glargine 16 unit 16 unit DAILY@20 SC Last administered on 04/06/17 20: 42; Admin Dose 16 UNIT; Start 04/05/17 at 20:00 Ceftriaxone Sodium 50 ml @ 100 mls/hr Q24H IVPB Last administered on 04/06/17 16:40; Admin Dose 100 MLS/HR; Start 04/06/17 at 17:00 Vancomycin HCl 1.5 gm/Sodium Chloride 250 ml @ 83.333 mls/ hr ONCE ONCE IVPB Last administered on 04/07/17t 10:59; Admin Dose 83.333 MLS/HR; Start 04/07/17 at 11:00; Stop 04/07/17 at 13:59 Vancomycin HCl (Vancocin) 250 ml @ 125 mls/hr Q12H IVPB ; Start 04/07/17 at 22: 00 ALANA DEWITT Apr 07, 2017 13:35
[2017-04-07 15:40] LABS: ISLET CELL ANTIBODY SCREEN NEGATIVE (NEGATIVE)
[2017-04-07] MEDS: CEFTRIAXONE 1 GM/50 ML (PMX) 50 ML IVPB SCH (17:38)
--- NOTE | 2017-04-07 18:05 | CONS ---
Date/Time of Note Date/Time of Note DATE: 04/07/17 TIME: 18:04 Consultation Date/Type/Reason Admit Date/Time Apr 04, 2017 at 20:39 Date of Consultation: Apr 07, 2017 Type of Consultation: ID Reason for Consultation Antibiotic management for pyelonephritis Constitutional: no complaints Social History Alcohol Use: none Smoking Status: Never smoker Drug Use: none Exam/Review of Systems Vital Signs Vitals Vital Signs Date Time Temp Pulse Resp B/P Pulse Ox O2 Delivery O2 Flow Rate FiO2 04/07/17 16:20 89 04/07/17 15:17 98.3 18 134/75 95 04/04/17 22:49 Room Air Intake and Output 04/06/17 04/06/17 04/07/17 15:00 23:00 07:00 Intake Total 1050 ml 500 ml Balance 1050 ml 500 ml Results Result Diagram: 04/07/17 0550 04/07/17 0550 Results 24 hrs Laboratory Tests Test 04/06/17 20:28 04/07/17 05:50 04/07/17 07:43 04/07/17 11:36 Bedside Glucose 178 128 159 White Blood Count 4.5 L Red Blood Count 4.60 Hemoglobin 12.1 Hematocrit 35.8 L Mean Corpuscular Volume 77.8 L Mean Corpuscular Hemoglobin 26.3 L Mean Corpuscular Hemoglobin Concent 33.8 Red Cell Distribution Width 14.2 Platelet Count 277 # Mean Platelet Volume 9.3 Neutrophils % 50.5 Lymphocytes % 34.7 Monocytes % 13.3 H Eosinophils % 0.7 Basophils % 0.4 Nucleated Red Blood Cells % 0.0 Neutrophils # 2.3 Lymphocytes # 1.6 Monocytes # 0.6 Eosinophils # 0.0 Basophils # 0.0 Nucleated Red Blood Cells # 0.0 Sodium Level 140 Potassium Level 3.6 Chloride Level 97 Carbon Dioxide Level 29 Anion Gap 18 H Blood Urea Nitrogen 11 Creatinine 0.63 Glucose Level 118 # Calcium Level 9.0 Magnesium Level 2.2 Test 04/07/17 17:38 Bedside Glucose 163 Medications Medications Current Medications Diagnostic Test (Pha) (Accu-Chek) 1 ea 02 XX Last administered on 04/05/17t 02: 54; Admin Dose 1 EA; Start 04/05/17 at 02:00 Acetaminophen (Tylenol Tab) 650 mg Q6H PRN PO PAIN AND OR ELEVATED TEMP Last administered on 04/05/17 14:50; Admin Dose 650 MG; Start 04/05/17 at 02:00 Ondansetron HCl (Zofran Inj) 4 mg Q6H PRN IV NAUSEA AND/OR VOMITING; Start 04/05 at 02:00 Morphine Sulfate (morphine) 3 mg Q4H PRN IV PAIN; Start 04/05/17 at 02:00 Miscellaneous Information 1 ea NOTE XX ; Start 04/05/17 at 02:30 Glucose (Glutose) 15 gm Q15M PRN PO DECREASED GLUCOSE; Start 04/05/17 at 02:30 Glucose (Glutose) 22.5 gm Q15M PRN PO DECREASED GLUCOSE; Start 04/05/17 at 02:30 Dextrose (D50w Syringe) 25 ml Q15M PRN IV DECREASED GLUCOSE; Start 04/05/17 at 02:30 Dextrose (D50w Syringe) 50 ml Q15M PRN IV DECREASED GLUCOSE; Start 04/05/17 at 02:30 Glucagon (Glucagen) 1 mg Q15M PRN IM DECREASED GLUCOSE; Start 04/05/17 at 02:30 Glucose 15 gm 15 gm Q15M PRN BUCCAL DECREASED GLUCOSE; Start 04/05/17 at 02:30 Ceftriaxone Sodium 50 ml @ 100 mls/hr Q24H IVPB Last administered on 04/07/17 17:38; Admin Dose 100 MLS/HR; Start 04/06/17 at 17:00 Vancomycin HCl (Vancocin) 250 ml @ 125 mls/hr Q12H IVPB ; Start 04/07/17 at 22: 00 Insulin Glargine (Lantus) 19 unit DAILY@20 SC ; Start 04/07/17 at 20:00 NEW CARRASCO MD Apr 07, 2017 18:05
[2017-04-07] MEDS ORDERED: INSULIN GLARGINE [LANtus] 3 ML PEN SC SCH (20:00)
[2017-04-07] MEDS: VANCOMYCIN 1 GM in NS 250 ML IVPB SCH (22:11)
[2017-04-08] VITALS (11 sets, daily range): BP systolic 126–144; BP diastolic 69–90; PULSE 72–88; RESP 16–19
--- NOTE | 2017-04-08 01:49 | CONS ---
DATE OF ADMISSION: 04/04/2017 DATE OF CONSULTATION: 04/07/2017 REASON FOR CONSULTATION: Antibiotic management. HISTORY OF PRESENT ILLNESS: Carolina Ku is a 46-year-old female, with no significant past medical history, who came to the emergency room with right flank pain and fever of 2 days duration. She also had nausea and vomiting and was febrile to 103. She then had a temperature that went up to 105.7, heart rate of 126. Lactic acid 2. Her white count was 9.1, H and H of 13.3, 38.8, platelet count 254,000. BUN and creatinine 12/0.72. Patient was felt to have sepsis secondary to pyelonephritis and was started on vancomycin and cefepime. PAST MEDICAL HISTORY: Operations: None. FAMILY HISTORY: Noncontributory. SOCIAL HISTORY: She does not smoke, drink, or abuse drugs. ALLERGIES: NONE TO PENICILLIN, SULFA, OR FOODS. MEDICATION: Per chart. REVIEW OF SYSTEMS: As per HPI. PHYSICAL EXAMINATION: GENERAL APPEARANCE: The patient is a well-developed, well- nourished female, alert, responsive, in no acute distress. VITAL SIGNS: Stable. She is afebrile. Her T-max is 105.7. SKIN: Without generalized rash. HEENT: Within normal limits. NECK: Supple. Lymph nodes nonpalpable. CHEST: Decreased breath sounds at the bases. HEART: Without murmur or gallop. She is tachycardic. ABDOMEN: Abdomen is soft, nontender. She has right flank tenderness. No organosplenomegaly, masses. EXTREMITIES: Without cyanosis, clubbing, or edema. RECTAL AND GENITAL: Exam is deferred. NEUROLOGIC: No focal neurological abnormalities. LABORATORY: Patient has positive urine for E coli and positive blood culture for gram-positive cocci. So this may be a contaminant, but there was 1/2 blood cultures that were positive. She had a CT scan of the abdomen and pelvis, which showed cholelithiasis without evidence of biliary tree dilatation, mild hepatosplenomegaly with decrease in overall attenuation of the liver suggesting diffuse steatosis, mild pyelocaliectasis and ureterectasis with edematous changes and perinephric stranding along the right kidney without evidence of ureterolithiasis. This may indicate mild postobstructive edema from recently passed stone, normal-appearing appendix, short segment of jejunum in the left lower abdomen demonstrates mild circumferential mucosal thickening of uncertain significance. She may have mild localized enteritis. A gallbladder ultrasound showed no evidence of gallbladder wall thickening or pericholecystic fluid, though she did have cholelithiasis. IMPRESSION AND PLAN: The patient has urinary tract infection with sepsis. However, we are going to repeat blood cultures. Urine culture showed Escherichia coli. She was placed on Rocephin rather than cefepime by Dr. Whitfield, which is appropriate. She had blood cultures on the 2nd, one of which was positive as mentioned and so we will repeat her blood cultures. I will dictate my findings to the hospitalists. Dictated By: Ayad Garber MD JD/sterling/ana /Document#: [id number]
[2017-04-08] MEDS: ACCU-CHEK XX SCH (02:00)
[2017-04-08 06:27] LABS: BASOPHILS % 0.7 % (0.0-2.0); EOSINOPHILS # 0.2 10^3/ul (0.0-0.5); EOSINOPHILS % 4.3 % (0.0-7.0); HEMATOCRIT 39.7 % (37.0-47.0); HEMOGLOBIN 13.2 g/dl (12.0-16.0); LYMPHOCYTES # 1.4 10^3/ul (0.8-2.9); LYMPHOCYTES % 32.1 % (15.0-51.0); MEAN CORPUSCULAR HGB CONC 33.2 g/dl (32.0-37.0); MEAN CORPUSCULAR VOLUME 78.3 fl (82.0-101.0); MEAN PLATELET VOLUME 9.2 fl (7.4-10.4); MONOCYTE # 0.5 10^3/ul (0.3-0.9); MONOCYTES % 12.1 % (0.0-11.0); NEUTROPHIL # 2.2 10^3/ul (1.6-7.5); NEUTROPHILS % 50.1 % (39.0-77.0); PLATELET COUNT 333 10^3/UL (140-415); RED BLOOD COUNT 5.07 10^6/ul (4.20-5.40); RED CELL DISTRIBUTION WIDTH 14.4 % (11.5-14.5); WHITE BLOOD COUNT 4.5 10^3/ul (4.8-10.8)
[2017-04-08 06:46] LABS: CALCIUM 9.4 mg/dl (8.4-10.2); CREATININE 0.62 mg/dl (0.44-1.00); MAGNESIUM 2.2 mg/dl (1.7-2.5); POTASSIUM 3.9 mmol/L (3.5-5.1)
[2017-04-08] MEDS: INSULIN ASPART [NOVOLOG] 3 ML PEN SC SCH ×7 (08:13→20:53)
[2017-04-08] MEDS: VANCOMYCIN 1 GM in NS 250 ML IVPB SCH ×2 (10:39→22:45)
--- NOTE | 2017-04-08 13:13 | PN ---
Date/Time of Note Date/Time of Note DATE: 04/08/17 TIME: 13:07 Assessment/Plan VTE Prophylaxis VTE Prophylaxis Intervention: ambulation Lines/Catheters IV [facility] Type (from [facility] Saline Lock Assessment/Plan Chief Complaint/Hosp Course 1. Sepsis, as evidenced by fever and tachycardia with a lactic acidosis secondary to pyelonephritis and staph bacteremia-improved patient having no further fevers -Urine culture showing E. coli, continue Rocephin -Blood cultures now showing staph species in 2 out of 2 cultures, continue Vanco and ID consultation appreciated, follow-up on repeat blood cultures and obtain a 2D echo to evaluate for infectious endocarditis 2. Mild hyponatremia-resolved 3. Newly diagnosed diabetes-sugars improved but still mildly elevated -A1c 10.1, consumer educator consultation appreciated -Increase both basal and mealtime insulin Prophylaxis: Ambulation Problems: Subjective 24 Hr Interval Summary Constitutional: no complaints Exam/Review of Systems Vital Signs Vitals Vital Signs Date Time Temp Pulse Resp B/P Pulse Ox O2 Delivery O2 Flow Rate FiO2 04/08/17 11:17 99.1 84 16 126/74 94 04/04/17 22:49 Room Air Intake and Output 04/07/17 04/07/17 04/08/17 15:00 23:00 07:00 Intake Total 250 ml 850 ml 300 ml Balance 250 ml 850 ml 300 ml Exam Constitutional: alert Respiratory: clear to auscultation Cardiovascular: regular rate and rhythm Gastrointestinal: soft, No distended Musculoskeletal: nl extremities to inspection Results Result Diagram: 04/08/17 0529 04/08/17 0529 Results 24 hrs Laboratory Tests Test 04/07/17 17:38 04/07/17 20:22 04/08/17 02:32 04/08/17 05:29 Bedside Glucose 163 184 157 White Blood Count 4.5 L Red Blood Count 5.07 Hemoglobin 13.2 Hematocrit 39.7 Mean Corpuscular Volume 78.3 L Mean Corpuscular Hemoglobin 26.0 L Mean Corpuscular Hemoglobin Concent 33.2 Red Cell Distribution Width 14.4 Platelet Count 333 # Mean Platelet Volume 9.2 Neutrophils % 50.1 Lymphocytes % 32.1 Monocytes % 12.1 H Eosinophils % 4.3 Basophils % 0.7 Nucleated Red Blood Cells % 0.0 Neutrophils # 2.2 Lymphocytes # 1.4 Monocytes # 0.5 Eosinophils # 0.2 Basophils # 0.0 Nucleated Red Blood Cells # 0.0 Sodium Level 142 Potassium Level 3.9 Chloride Level 98 Carbon Dioxide Level 28 Anion Gap 20 H Blood Urea Nitrogen 13 Creatinine 0.62 Glucose Level 174 Calcium Level 9.4 Magnesium Level 2.2 Test 04/08/17 08:08 04/08/17 12:12 Bedside Glucose 166 182 Medications Medications Current Medications Diagnostic Test (Pha) (Accu-Chek) 1 ea 02 XX Last administered on 04/05/17 02: 54; Admin Dose 1 EA; Start 04/05/17 at 02:00 Acetaminophen (Tylenol Tab) 650 mg Q6H PRN PO PAIN AND OR ELEVATED TEMP Last administered on 04/05/17 14:50; Admin Dose 650 MG; Start 04/05/17 at 02:00 Ondansetron HCl (Zofran Inj) 4 mg Q6H PRN IV NAUSEA AND/OR VOMITING; Start 04/05 at 02:00 Morphine Sulfate (morphine) 3 mg Q4H PRN IV PAIN; Start 04/05/17 at 02:00 Miscellaneous Information 1 ea NOTE XX ; Start 04/05/17 at 02:30 Glucose (Glutose) 15 gm Q15M PRN PO DECREASED GLUCOSE; Start 04/05/17 at 02:30 Glucose (Glutose) 22.5 gm Q15M PRN PO DECREASED GLUCOSE; Start 04/05/17 at 02:30 Dextrose (D50w Syringe) 25 ml Q15M PRN IV DECREASED GLUCOSE; Start 04/05/17 at 02:30 Dextrose (D50w Syringe) 50 ml Q15M PRN IV DECREASED GLUCOSE; Start 04/05/17 at 02:30 Glucagon (Glucagen) 1 mg Q15M PRN IM DECREASED GLUCOSE; Start 04/05/17 at 02:30 Glucose 15 gm 15 gm Q15M PRN BUCCAL DECREASED GLUCOSE; Start 04/05/17 at 02:30 Ceftriaxone Sodium 50 ml @ 100 mls/hr Q24H IVPB Last administered on 04/07/17 17:38; Admin Dose 100 MLS/HR; Start 04/06/17 at 17:00 Vancomycin HCl (Vancocin) 250 ml @ 125 mls/hr Q12H IVPB Last administered on 10:39; Admin Dose 125 MLS/HR; Start 04/07/17 at 22:00 Insulin Glargine (Lantus) 19 unit DAILY@20 SC Last administered on 04/07/17t 20: 27; Admin Dose 19 UNIT; Start 04/07/17 at 20:00 ALANA DEWITT Apr 08, 2017 13:13
--- NOTE | 2017-04-08 14:19 | CONS ---
Date/Time of Note Date/Time of Note DATE: 04/08/17 TIME: 14:18 Assessment/Plan Assessment/Plan Chief Complaint/Hosp Course ID PROGRESS NOTE CURRENT ABX: Ceftriaxone + Vanco IV 24H INTERVAL SUMMARY * A/A/O fevers resolved, feeling better * BCx on admission "CoNS" -> Repeat BCx (-) * Urine RINE CULTURE Final Organism 1 ESCHERICHIA COLI COLONY COUNT >100,000 CFU/ml E COLI M.I.C. RX --------- --- AMPICILLIN >=32 R CEFAZOLIN S CEFOTAXIME S CIPROFLOXACIN <=0.25 S GENTAMICIN <=1 S LEVOFLOXACIN <=0.12 S NITROFURANTOIN <=16 S TOBRAMYCIN <=1 S TRIMETHOPRIM/SULFAMETHOXAZOLE <=20 S Bloood Cx: BLOOD CULTURE Final BCULT GRAM BOTTLE 1 Gram positive cocci in clusters 1 of 2 bottles . seen on gram stain of the broth Organism 1 COAGULASE NEGATIVE STAPH CRITICAL TEST VALUE BTL 1 . PHONED TO & READ BACK BY JANINA MEDEROS@[phone] [id number] BY LOLY JANG NEG M.I.C. RX --------- --- CEFAZOLIN S CIPROFLOXACIN <=0.5 S CLINDAMYCIN <=0.25 S DOXYCYCLINE S ERYTHROMYCIN <=0.25 S LEVOFLOXACIN <=0.12 S OXACILLIN <=0.25 S PENICILLIN-G R RIFAMPIN <=0.5 S VANCOMYCIN <=0.5 S TRIMETHOPRIM/SULFAMETHOXAZOLE <=10 S GEN: [facility] 46 yo F HEENT: Unremarkable Neck: Supple, full ROM CHEST: Equal chest rise without dyspnea CV: Radial pulse RRR ABD: Soft, non-tender EXT: Warm SKIN: No rash, no diaphoresis ID ASSESSMENT 46 yo F admit with: 1. . Sepsis, as evidenced by fever and tachycardia with a lactic acidosis secondary to pyelonephritis 2 Staph Coag Neg "CoNS" bacteremia ->Consistent w/skin contaminated sample * Repeat BCx (-) * 2D ECHO not indicated for "CoNS" = note compelling for SBE 3. E.Coli GNR Pyelonephritis = complicated UTI * CT No evidence of hydronephrosis. 4. Diabetes, Adult onset = new diagnosis w/A1c 10.1 5. Fatty liver disease w/mild hepatomegaly per CT 6. Cholelithiasis with no evidence of gallbladder wall thickening or pericholecystic fluid=> Per CT (-)MRSA Nares CURRENT ABX: Ceftriaxone + Vanco IV => DC START Cipro 500mg po BID x 10 days ID RECOMMENDATIONS 1. Patient may DC home on Cipro 500mg po BID x 10 days . \\. Problems: Consultation Date/Type/Reason Admit Date/Time Apr 04, 2017 at 20:39 Initial Consult Date 04/07/17 Type of Consultation: ID Exam/Review of Systems Vital Signs Vitals Vital Signs Date Time Temp Pulse Resp B/P Pulse Ox O2 Delivery O2 Flow Rate FiO2 04/08/17 13:55 78 04/08/17 11:17 99.1 16 126/74 94 04/04/17 22:49 Room Air Intake and Output 04/07/17 04/07/17 04/08/17 15:00 23:00 07:00 Intake Total 250 ml 850 ml 300 ml Balance 250 ml 850 ml 300 ml Results Result Diagram: 04/08/17 0529 04/08/17 0529 Results 24 hrs Laboratory Tests Test 04/07/17 17:38 04/07/17 20:22 04/08/17 02:32 04/08/17 05:29 Bedside Glucose 163 184 157 White Blood Count 4.5 L Red Blood Count 5.07 Hemoglobin 13.2 Hematocrit 39.7 Mean Corpuscular Volume 78.3 L Mean Corpuscular Hemoglobin 26.0 L Mean Corpuscular Hemoglobin Concent 33.2 Red Cell Distribution Width 14.4 Platelet Count 333 # Mean Platelet Volume 9.2 Neutrophils % 50.1 Lymphocytes % 32.1 Monocytes % 12.1 H Eosinophils % 4.3 Basophils % 0.7 Nucleated Red Blood Cells % 0.0 Neutrophils # 2.2 Lymphocytes # 1.4 Monocytes # 0.5 Eosinophils # 0.2 Basophils # 0.0 Nucleated Red Blood Cells # 0.0 Sodium Level 142 Potassium Level 3.9 Chloride Level 98 Carbon Dioxide Level 28 Anion Gap 20 H Blood Urea Nitrogen 13 Creatinine 0.62 Glucose Level 174 Calcium Level 9.4 Magnesium Level 2.2 Test 04/08/17 08:08 04/08/17 12:12 Bedside Glucose 166 182 Medications Medications Current Medications Diagnostic Test (Pha) (Accu-Chek) 1 ea 02 XX Last administered on 04/05/17 02: 54; Admin Dose 1 EA; Start 04/05/17 at 02:00 Acetaminophen (Tylenol Tab) 650 mg Q6H PRN PO PAIN AND OR ELEVATED TEMP Last administered on 04/05/17 14:50; Admin Dose 650 MG; Start 04/05/17 at 02:00 Ondansetron HCl (Zofran Inj) 4 mg Q6H PRN IV NAUSEA AND/OR VOMITING; Start 04/05 at 02:00 Morphine Sulfate (morphine) 3 mg Q4H PRN IV PAIN; Start 04/05/17 at 02:00 Miscellaneous Information 1 ea NOTE XX ; Start 04/05/17 at 02:30 Glucose (Glutose) 15 gm Q15M PRN PO DECREASED GLUCOSE; Start 04/05/17 at 02:30 Glucose (Glutose) 22.5 gm Q15M PRN PO DECREASED GLUCOSE; Start 04/05/17 at 02:30 Dextrose (D50w Syringe) 25 ml Q15M PRN IV DECREASED GLUCOSE; Start 04/05/17 at 02:30 Dextrose (D50w Syringe) 50 ml Q15M PRN IV DECREASED GLUCOSE; Start 04/05/17 at 02:30 Glucagon (Glucagen) 1 mg Q15M PRN IM DECREASED GLUCOSE; Start 04/05/17 at 02:30 Glucose 15 gm 15 gm Q15M PRN BUCCAL DECREASED GLUCOSE; Start 04/05/17 at 02:30 Ceftriaxone Sodium 50 ml @ 100 mls/hr Q24H IVPB Last administered on 04/07/17 17:38; Admin Dose 100 MLS/HR; Start 04/06/17 at 17:00 Vancomycin HCl (Vancocin) 250 ml @ 125 mls/hr Q12H IVPB Last administered on 10:39; Admin Dose 125 MLS/HR; Start 04/07/17 at 22:00 Insulin Glargine (Lantus) 22 unit DAILY@20 SC ; Start 04/08/17 at 20:00 SPENSER ROBLES NP Apr 08, 2017 14:19
[2017-04-08] MEDS: CEFTRIAXONE 1 GM/50 ML (PMX) 50 ML IVPB SCH (17:34)
[2017-04-08] MEDS: INSULIN GLARGINE [LANtus] 3 ML PEN SC SCH (20:57)
[2017-04-09] VITALS (12 sets, daily range): BP systolic 124–164; BP diastolic 64–89; PULSE 65–95; RESP 17–20
[2017-04-09] MEDS: ACCU-CHEK XX SCH (02:00)
[2017-04-09 05:52] LABS: BASOPHILS % 0.8 % (0.0-2.0); EOSINOPHILS # 0.3 10^3/ul (0.0-0.5); EOSINOPHILS % 6.1 % (0.0-7.0); HEMATOCRIT 37.3 % (37.0-47.0); HEMOGLOBIN 12.4 g/dl (12.0-16.0); LYMPHOCYTES % 38.3 % (15.0-51.0); MEAN CORPUSCULAR HEMOGLOBIN 26.2 pg (29.0-33.0); MEAN CORPUSCULAR HGB CONC 33.2 g/dl (32.0-37.0); MEAN CORPUSCULAR VOLUME 78.7 fl (82.0-101.0); MEAN PLATELET VOLUME 8.9 fl (7.4-10.4); MONOCYTE # 0.6 10^3/ul (0.3-0.9); MONOCYTES % 12.2 % (0.0-11.0); NEUTROPHIL # 2.2 10^3/ul (1.6-7.5); NEUTROPHILS % 42.2 % (39.0-77.0); PLATELET COUNT 330 10^3/UL (140-415); RED BLOOD COUNT 4.74 10^6/ul (4.20-5.40); RED CELL DISTRIBUTION WIDTH 14.1 % (11.5-14.5); WHITE BLOOD COUNT 5.3 10^3/ul (4.8-10.8)
[2017-04-09] MEDS ORDERED: VANCOMYCIN 1.25 GM in SOD CHLORIDE 0.9% 250 ML IVPB SCH (06:00)
[2017-04-09 06:04] LABS: POSITIVE DIFF @See below
[2017-04-09 06:19] LABS: CALCIUM 9.1 mg/dl (8.4-10.2); CREATININE 0.69 mg/dl (0.44-1.00); POTASSIUM 3.8 mmol/L (3.5-5.1)
[2017-04-09] MEDS: INSULIN ASPART [NOVOLOG] 3 ML PEN SC SCH ×7 (08:15→20:59)
[2017-04-09] MEDS ORDERED: VANCOMYCIN 1 GM in NS 250 ML IVPB SCH (14:00)
[2017-04-09] MEDS: CEFTRIAXONE 1 GM/50 ML (PMX) 50 ML IVPB SCH (16:00)
--- NOTE | 2017-04-09 18:02 | CONS ---
Date/Time of Note Date/Time of Note DATE: 04/09/17 TIME: 18:02 Assessment/Plan Assessment/Plan Chief Complaint/Hosp Course ID PROGRESS NOTE CURRENT ABX: Ceftriaxone + Vanco IV 24H INTERVAL SUMMARY * A/A/O fevers resolved, feeling better * BCx on admission "CoNS" -> Repeat BCx (-) * Urine RINE CULTURE Final Organism 1 ESCHERICHIA COLI COLONY COUNT >100,000 CFU/ml E COLI M.I.C. RX --------- --- AMPICILLIN >=32 R CEFAZOLIN S CEFOTAXIME S CIPROFLOXACIN <=0.25 S GENTAMICIN <=1 S LEVOFLOXACIN <=0.12 S NITROFURANTOIN <=16 S TOBRAMYCIN <=1 S TRIMETHOPRIM/SULFAMETHOXAZOLE <=20 S Bloood Cx: BLOOD CULTURE Final BCULT GRAM BOTTLE 1 Gram positive cocci in clusters 1 of 2 bottles . seen on gram stain of the broth Organism 1 COAGULASE NEGATIVE STAPH CRITICAL TEST VALUE BTL 1 . PHONED TO & READ BACK BY JANINA MEDEROS@[id number] BY LOLY JANG NEG M.I.C. RX --------- --- CEFAZOLIN S CIPROFLOXACIN <=0.5 S CLINDAMYCIN <=0.25 S DOXYCYCLINE S ERYTHROMYCIN <=0.25 S LEVOFLOXACIN <=0.12 S OXACILLIN <=0.25 S PENICILLIN-G R RIFAMPIN <=0.5 S VANCOMYCIN <=0.5 S TRIMETHOPRIM/SULFAMETHOXAZOLE <=10 S GEN: [facility] 46 yo F HEENT: Unremarkable Neck: Supple, full ROM CHEST: Equal chest rise without dyspnea CV: Radial pulse RRR ABD: Soft, non-tender EXT: Warm SKIN: No rash, no diaphoresis ID ASSESSMENT 46 yo F admit with: 1. . Sepsis, as evidenced by fever and tachycardia with a lactic acidosis secondary to pyelonephritis 2 Staph Coag Neg "CoNS" bacteremia ->Consistent w/skin contaminated sample * Repeat BCx (-) * 2D ECHO not indicated for "CoNS" = note compelling for SBE 3. E.Coli GNR Pyelonephritis = complicated UTI * CT No evidence of hydronephrosis. 4. Diabetes, Adult onset = new diagnosis w/A1c 10.1 5. Fatty liver disease w/mild hepatomegaly per CT 6. Cholelithiasis with no evidence of gallbladder wall thickening or pericholecystic fluid=> Per CT (-)MRSA Nares CURRENT ABX: Ceftriaxone + Vanco IV => DC START Cipro 500mg po BID x 10 days ID RECOMMENDATIONS 1. Patient may DC home on Cipro 500mg po BID x 10 days . \\. Problems: Consultation Date/Type/Reason Admit Date/Time Apr 04, 2017 at 20:39 Initial Consult Date 04/07/17 Type of Consultation: ID Exam/Review of Systems Vital Signs Vitals Vital Signs Date Time Temp Pulse Resp B/P Pulse Ox O2 Delivery O2 Flow Rate FiO2 04/09/17 16:39 94 04/09/17 16:01 97.7 20 164/79 98 Intake and Output 04/08/17 04/08/17 04/09/17 15:00 23:00 07:00 Intake Total 250 ml 1050 ml 540 ml Output Total 2200 ml Balance 250 ml -1150 ml 540 ml Results Result Diagram: 04/09/17 0520 04/09/17 0520 Results 24 hrs Laboratory Tests Test 04/08/17 20:53 04/08/17 20:56 04/09/17 02:34 04/09/17 05:20 Bedside Glucose 159 127 Vancomycin Level Trough 5.4 L White Blood Count 5.3 Red Blood Count 4.74 Hemoglobin 12.4 Hematocrit 37.3 Mean Corpuscular Volume 78.7 L Mean Corpuscular Hemoglobin 26.2 L Mean Corpuscular Hemoglobin Concent 33.2 Red Cell Distribution Width 14.1 Platelet Count 330 Mean Platelet Volume 8.9 Neutrophils % 42.2 Lymphocytes % 38.3 Monocytes % 12.2 H Eosinophils % 6.1 Basophils % 0.8 Nucleated Red Blood Cells % 0.0 Neutrophils # 2.2 Lymphocytes # 2.0 Monocytes # 0.6 Eosinophils # 0.3 Basophils # 0.0 Nucleated Red Blood Cells # 0.0 Sodium Level 144 Potassium Level 3.8 Chloride Level 102 Carbon Dioxide Level 28 Anion Gap 18 H Blood Urea Nitrogen 11 Creatinine 0.69 Glucose Level 145 Calcium Level 9.1 Test 04/09/17 08:09 04/09/17 12:02 04/09/17 17:38 Bedside Glucose 156 129 134 Medications Medications Current Medications Diagnostic Test (Pha) (Accu-Chek) 1 ea 02 XX Last administered on 04/09/17 02: 00; Admin Dose 1 EA; Start 04/05/17 at 02:00 Acetaminophen (Tylenol Tab) 650 mg Q6H PRN PO PAIN AND OR ELEVATED TEMP Last administered on 04/05/17 14:50; Admin Dose 650 MG; Start 04/05/17 at 02:00 Ondansetron HCl (Zofran Inj) 4 mg Q6H PRN IV NAUSEA AND/OR VOMITING; Start 04/05 at 02:00 Morphine Sulfate (morphine) 3 mg Q4H PRN IV PAIN; Start 04/05/17 at 02:00 Miscellaneous Information 1 ea NOTE XX ; Start 04/05/17 at 02:30 Glucose (Glutose) 15 gm Q15M PRN PO DECREASED GLUCOSE; Start 04/05/17 at 02:30 Glucose (Glutose) 22.5 gm Q15M PRN PO DECREASED GLUCOSE; Start 04/05/17 at 02:30 Dextrose (D50w Syringe) 25 ml Q15M PRN IV DECREASED GLUCOSE; Start 04/05/17 at 02:30 Dextrose (D50w Syringe) 50 ml Q15M PRN IV DECREASED GLUCOSE; Start 04/05/17 at 02:30 Glucagon (Glucagen) 1 mg Q15M PRN IM DECREASED GLUCOSE; Start 04/05/17 at 02:30 Glucose 15 gm 15 gm Q15M PRN BUCCAL DECREASED GLUCOSE; Start 04/05/17 at 02:30 Ceftriaxone Sodium (Rocephin) 50 ml @ 100 mls/hr Q24H IVPB Last administered on 04/09/17 16:00; Admin Dose 100 MLS/HR; Start 04/06/17 at 17:00 Insulin Glargine 22 unit 22 unit DAILY@20 SC Last administered on 04/08/17 20: 57; Admin Dose 22 UNIT; Start 04/08/17 at 20:00 Vancomycin HCl (Vancocin) 250 ml @ 125 mls/hr Q8H IVPB Last administered on 15:59; Admin Dose 125 MLS/HR; Start 04/09/17 at 14:00 Miscellaneous Information (*Rx Drug Level Order Reminder*) VANCOMYCIN TROUGH 04/10 AT 1300 ONCE ONCE XX ; Start 04/10/17 at 13:00; Stop 04/10/17 at 13:01 SPENSER ROBLES NP Apr 09, 2017 18:02
--- NOTE | 2017-04-09 18:49 | PN ---
Date/Time of Note Date/Time of Note DATE: 04/09/17 TIME: 18:48 Assessment/Plan VTE Prophylaxis VTE Prophylaxis Intervention: LMWH Lines/Catheters IV Catheter Type (from Nrs): Saline Lock Assessment/Plan Chief Complaint/Hosp Course 46 yo female with urosepsis CoNS bactermeia cee hope contaminiant WIll discharge home tomorrow on PO abx Problems: Subjective 24 Hr Interval Summary Free Text/Dictation Patient feels well no complaints Exam/Review of Systems Vital Signs Vitals Vital Signs Date Time Temp Pulse Resp B/P Pulse Ox O2 Delivery O2 Flow Rate FiO2 04/09/17 16:39 94 04/09/17 16:01 97.7 20 164/79 98 Intake and Output 04/08/17 04/08/17 04/09/17 15:00 23:00 07:00 Intake Total 250 ml 1050 ml 540 ml Output Total 2200 ml Balance 250 ml -1150 ml 540 ml Exam Well appeaing Tachy, reuglar No abdominal or suprapubic tenderness Results Result Diagram: 04/09/17 0520 04/09/17 0520 Results 24 hrs Laboratory Tests Test 04/08/17 20:53 04/08/17 20:56 04/09/17 02:34 04/09/17 05:20 Bedside Glucose 159 127 Vancomycin Level Trough 5.4 L White Blood Count 5.3 Red Blood Count 4.74 Hemoglobin 12.4 Hematocrit 37.3 Mean Corpuscular Volume 78.7 L Mean Corpuscular Hemoglobin 26.2 L Mean Corpuscular Hemoglobin Concent 33.2 Red Cell Distribution Width 14.1 Platelet Count 330 Mean Platelet Volume 8.9 Neutrophils % 42.2 Lymphocytes % 38.3 Monocytes % 12.2 H Eosinophils % 6.1 Basophils % 0.8 Nucleated Red Blood Cells % 0.0 Neutrophils # 2.2 Lymphocytes # 2.0 Monocytes # 0.6 Eosinophils # 0.3 Basophils # 0.0 Nucleated Red Blood Cells # 0.0 Sodium Level 144 Potassium Level 3.8 Chloride Level 102 Carbon Dioxide Level 28 Anion Gap 18 H Blood Urea Nitrogen 11 Creatinine 0.69 Glucose Level 145 Calcium Level 9.1 Test 04/09/17 08:09 04/09/17 12:02 04/09/17 17:38 Bedside Glucose 156 129 134 Medications Medications Current Medications Diagnostic Test (Pha) (Accu-Chek) 1 ea 02 XX Last administered on 04/09/17 02: 00; Admin Dose 1 EA; Start 04/05/17 at 02:00 Acetaminophen (Tylenol Tab) 650 mg Q6H PRN PO PAIN AND OR ELEVATED TEMP Last administered on 04/05/17 14:50; Admin Dose 650 MG; Start 04/05/17 at 02:00 Ondansetron HCl (Zofran Inj) 4 mg Q6H PRN IV NAUSEA AND/OR VOMITING; Start 04/05 at 02:00 Morphine Sulfate (morphine) 3 mg Q4H PRN IV PAIN; Start 04/05/17 at 02:00 Miscellaneous Information 1 ea NOTE XX ; Start 04/05/17 at 02:30 Glucose (Glutose) 15 gm Q15M PRN PO DECREASED GLUCOSE; Start 04/05/17 at 02:30 Glucose (Glutose) 22.5 gm Q15M PRN PO DECREASED GLUCOSE; Start 04/05/17 at 02:30 Dextrose (D50w Syringe) 25 ml Q15M PRN IV DECREASED GLUCOSE; Start 04/05/17 at 02:30 Dextrose (D50w Syringe) 50 ml Q15M PRN IV DECREASED GLUCOSE; Start 04/05/17 at 02:30 Glucagon (Glucagen) 1 mg Q15M PRN IM DECREASED GLUCOSE; Start 04/05/17 at 02:30 Glucose (Glutose) 15 gm Q15M PRN BUCCAL DECREASED GLUCOSE; Start 04/05/17 at 02: 30 Insulin Glargine (Lantus) 22 unit DAILY@20 SC Last administered on 04/08/17 20: 57; Admin Dose 22 UNIT; Start 04/08/17 at 20:00 Ciprofloxacin (Cipro) 500 mg BID@,18 PO ; Start 04/09/17 at 18:00; Stop at 12:00 AMISHA WILKINSON MD Apr 09, 2017 18:49
[2017-04-09] MEDS: CIPROFLOXACIN 500 MG TAB PO SCH (19:05)
[2017-04-09] MEDS: INSULIN GLARGINE [LANtus] 3 ML PEN SC SCH (20:58)
[2017-04-10] VITALS (10 sets, daily range): BP systolic 132–145; BP diastolic 70–89; PULSE 52–91; RESP 17–18
[2017-04-10] MEDS: ACCU-CHEK XX SCH (02:00)
[2017-04-10] MEDS: CIPROFLOXACIN 500 MG TAB PO SCH (05:51)
[2017-04-10] MEDS: INSULIN ASPART [NOVOLOG] 3 ML PEN SC SCH ×4 (08:17→12:35)
--- NOTE | 2017-04-10 14:15 | CONS ---
Date/Time of Note Date/Time of Note DATE: 04/10/17 TIME: 14:12 Assessment/Plan Assessment/Plan Chief Complaint/Hosp Course Assessment/Plan Chief Complaint/Hosp Course ID PROGRESS NOTE CURRENT ABX: Ceftriaxone + Vanco IV 24H INTERVAL SUMMARY * Awake. Alert. No Fevers. Denies Flank Pain. * BCx on admission "CoNS" -> Repeat BCx (-) * Urine RINE CULTURE Final Organism 1 ESCHERICHIA COLI COLONY COUNT >100,000 CFU/ml E COLI M.I.C. RX --------- --- AMPICILLIN >=32 R CEFAZOLIN S CEFOTAXIME S CIPROFLOXACIN <=0.25 S GENTAMICIN <=1 S LEVOFLOXACIN <=0.12 S NITROFURANTOIN <=16 S TOBRAMYCIN <=1 S TRIMETHOPRIM/SULFAMETHOXAZOLE <=20 S Bloood Cx: BLOOD CULTURE Final BCULT GRAM BOTTLE 1 Gram positive cocci in clusters 1 of 2 bottles . seen on gram stain of the broth Organism 1 COAGULASE NEGATIVE STAPH CRITICAL TEST VALUE BTL 1 . PHONED TO & READ BACK BY JANINA MEDEROS@[email or web address] [id number] BY BLE SUHAIL NEG M.I.C. RX --------- --- CEFAZOLIN S CIPROFLOXACIN <=0.5 S CLINDAMYCIN <=0.25 S DOXYCYCLINE S ERYTHROMYCIN <=0.25 S LEVOFLOXACIN <=0.12 S OXACILLIN <=0.25 S PENICILLIN-G R RIFAMPIN <=0.5 S VANCOMYCIN <=0.5 S TRIMETHOPRIM/SULFAMETHOXAZOLE <=10 S GEN: [place] 46 yo F HEENT: Unremarkable Neck: Supple, full ROM CHEST: Equal chest rise without dyspnea CV: Radial pulse RRR ABD: Soft, non-tender EXT: Warm SKIN: No rash, no diaphoresis ID ASSESSMENT 46 yo F admit with: 1. . Sepsis, as evidenced by fever and tachycardia with a lactic acidosis secondary to pyelonephritis 2 Staph Coag Neg "CoNS" bacteremia ->Consistent w/skin contaminated sample * Repeat BCx (-) * 2D ECHO not indicated for "CoNS" = note compelling for SBE 3. E.Coli GNR Pyelonephritis = complicated UTI * CT No evidence of hydronephrosis. 4. Diabetes, Adult onset = new diagnosis w/A1c 10.1 5. Fatty liver disease w/mild hepatomegaly per CT 6. Cholelithiasis with no evidence of gallbladder wall thickening or pericholecystic fluid=> Per CT (-)MRSA Nares CURRENT ABX: Ceftriaxone + Vanco IV => DC START Cipro 500mg po BID x 10 days ID RECOMMENDATIONS 1. Patient may DC home on Cipro 500mg po BID x 10 days Problems: Consultation Date/Type/Reason Admit Date/Time Apr 04, 2017 at 20:39 Initial Consult Date 04/07/17 Type of Consultation: ID Exam/Review of Systems Vital Signs Vitals Vital Signs Date Time Temp Pulse Resp B/P Pulse Ox O2 Delivery O2 Flow Rate FiO2 04/10/17 12:32 91 04/10/17 12:17 98.1 18 141/89 99 Intake and Output 04/09/17 04/09/17 04/10/17 15:00 23:00 07:00 Intake Total 1200 ml Balance 1200 ml Results Result Diagram: 04/09/17 0520 04/09/17 0520 Results 24 hrs Laboratory Tests Test 04/09/17 17:38 04/09/17 20:53 04/10/17 08:13 04/10/17 12:24 Bedside Glucose 134 161 147 113 Medications Medications Current Medications Diagnostic Test (Pha) (Accu-Chek) 1 ea 02 XX Last administered on 04/09/17 02: 00; Admin Dose 1 EA; Start 04/05/17 at 02:00 Acetaminophen (Tylenol Tab) 650 mg Q6H PRN PO PAIN AND OR ELEVATED TEMP Last administered on 04/05/17 14:50; Admin Dose 650 MG; Start 04/05/17 at 02:00 Ondansetron HCl (Zofran Inj) 4 mg Q6H PRN IV NAUSEA AND/OR VOMITING; Start 04/05 at 02:00 Morphine Sulfate (morphine) 3 mg Q4H PRN IV PAIN; Start 04/05/17 at 02:00 Miscellaneous Information 1 ea NOTE XX ; Start 04/05/17 at 02:30 Glucose (Glutose) 15 gm Q15M PRN PO DECREASED GLUCOSE; Start 04/05/17 at 02:30 Glucose (Glutose) 22.5 gm Q15M PRN PO DECREASED GLUCOSE; Start 04/05/17 at 02:30 Dextrose (D50w Syringe) 25 ml Q15M PRN IV DECREASED GLUCOSE; Start 04/05/17 at 02:30 Dextrose (D50w Syringe) 50 ml Q15M PRN IV DECREASED GLUCOSE; Start 04/05/17 at 02:30 Glucagon (Glucagen) 1 mg Q15M PRN IM DECREASED GLUCOSE; Start 04/05/17 at 02:30 Glucose (Glutose) 15 gm Q15M PRN BUCCAL DECREASED GLUCOSE; Start 04/05/17 at 02: 30 Insulin Glargine (Lantus) 22 unit DAILY@20 SC Last administered on 04/09/17 20: 58; Admin Dose 22 UNIT; Start 04/08/17 at 20:00 Ciprofloxacin (Cipro) 500 mg BID@06,18 PO Last administered on 04/10/17 05:51; Admin Dose 500 MG; Start 04/09/17 at 18:00; Stop 04/17/17 at 12:00 JIM PERDUE NP Apr 10, 2017 14:15
[2017-04-10] MEDS ORDERED: METF-731 PO (15:24)
[2017-04-10] MEDS ORDERED: CIPR500T4 PO (15:24)
--- NOTE | 2017-04-10 15:27 | PDOCDIS ---
Discharge Instructions CONDITION Patient Condition: Good HOME CARE INSTRUCTIONS: Diet Instructions: Reduced CalorieSpecial Diet: Carb controlled diet FOLLOW UP/APPOINTMENTS Follow-up Plan It is extremely important for you to make an appointment with you primary care provider You have been diagnosed with diabetes, which is a lifelong condition. I have prescribed metfomrin to you which is a medication for diabetes. It is very important that you eat a diet low in sugar and carbohydrates. Weight loss and exercise are also extremely important for you. You need to see a primary care doctor and have your blood sugars checked every few months' AMISHA WILKINSON MD Apr 10, 2017 15:26
--- NOTE | 2017-04-10 15:38 | DS ---
Date/Time of Note Date/Time of Note DATE: 04/10/17 TIME: 15:36 Discharge Summary Admission/Discharge Info Admit Date/Time Apr 04, 2017 at 20:39 Discharge Date/Time Hx of Present Illness This is a 46-year-old female with no significant past medical history who presented to the emergency department complaining of right flank pain and fever of 2 days duration. She also reported associated nausea and nonbloody nonbilious vomiting. When she presented to the ER she was febrile with a temperature of almost 103, which actually further increased to a temperature of 105.7. Her initial heart rate was 126. Lactic acid was 2. WBC is 9.1. Urinalysis consistent with UTI. CT abdomen pelvis shows right kidney perinephric stranding and edematous change likely a result of post obstructive edema from past. Also seen on the CAT scan was cholelithiasis without ductal dilatation. Laboratory results also showed sodium of 134 and a glucose of 389. Patient denies a history of diabetes and she said she does not remember the last time she was actually seen by a doctor. . Hospital Course the patient was diagnosed with enterococcal UTI. She improved rapidly on antibiotics. She was discharged with a 10 day course of ciprofloxacin. She also was diagnosed with diabetes with an A1C of 10%. She was extensively counseled on the importance of diet and exercise to improve glycemic control, and the lifelong need to follow with a primary care doctor for this condition. Home Meds Active Scripts Metformin HCl (Metformin HCl ER) 1,000 Mg [id number], 1000 MG PO BID WITH MEALS for 90 Days, #180 TAB 5 Refills Prov:AMISHA WILKINSON MD 04/10/17 Ciprofloxacin Hcl* (Ciprofloxacin Hcl*) 500 Mg Tablet, 500 MG PO BID for 10 Days , #20 TAB Prov:AMISHA WILKINSON MD 04/10/17 Discontinued Scripts Ibuprofen* (Motrin*) 400 Mg Tab, 400 MG PO Q6, #30 TAB Prov:MATTHEW BARRERA PA-C 04/04/17 Cephalexin* (Keflex*) 500 Mg Capsule, 500 MG PO TID for 14 Days, CAP Prov:MATTHEW BARRERA PA-C 04/04/17 Cephalexin* (Keflex*) 500 Mg Capsule, 500 MG PO TID for 10 Days, CAP Prov:MATTHEW BARRERA PA-C 04/04/17 Primary Care Provider Care Physician No Primary Time spent on discharge: > 30 minutes Pending Labs Laboratory Tests Test 04/09/17 17:38 04/09/17 20:53 04/10/17 08:13 04/10/17 12:24 Bedside Glucose 134mg/dL (70-220) 161mg/dL (70-220) 147mg/dL (70-220) 113mg/dL (70-220) AMISHA WILKINSON MD Apr 10, 2017 15:38
--- NOTE | 2017-04-10 17:37 | RADRPT ---
Echocardiogram Report Patient Name: TYESHA FORTUNE Gender: Female Date: 1970 Study Date: 08-Apr-2017 Public Relations Writer: JERILYN Location: I Ref. Physician: ALANA DEWITT Quality: Adequate Procedures: Transthoracic echocardiogram with complete 2D, M-Mode, and Doppler examination. Indications: Endocarditis. 2D/M Mode Doppler Measurement Value Normal Ranges Measurement Value Normal Ranges AoR Diam MM 2.9 cm AV Peak Danny 1.6 m/sec ACS MM 1.7 cm AV Peak PG 9.9 mmHg LVIDd 2D 4.5 3.5 - 5.6 cm LVOT Peak Danny 0.8 m/sec LVIDs 2D 2.4 2.1 - 4.1 cm LVOT Peak PG 2.4 mmHg LVPWd 2D 1.0 0.6 - 1.1 cm MV E Peak Danny 0.9 m/sec IVSd 2D 1.0 0.6 - 1.1 cm MV A Peak Danny 1.1 m/sec EDV 2D 92.9 cm3 MV E/A 0.8 ESV 2D 13.9 cm3 MV Decel Time 198 msec LA Dimen 2D 3.4 2.3 - 4.0 cm MV Decel Walsh 4 MV E/A 0.8 PV Peak Danny 1.0 m/sec PV Peak PG 4.0 mmHg Findings Left Ventricle: Normal left ventricular systolic function. Normal left ventricular cavity size. Normal left ventricular wall thickness. Ejection fraction is visually estimated at 65 %. Tissue Doppler/Mitral Doppler indices are consistent with impaired relaxation (Stage I diastolic dysfunction). Right Ventricle: Normal right ventricular size. Normal right ventricular systolic function. Left Atrium: The left atrium is normal in size. Right Atrium: The right atrium is normal in size. Mitral Valve: Mitral valve leaflets appear mildly thickened. Trace mitral regurgitation. Aortic Valve: Normal appearance of the aortic valve. No significant aortic stenosis or insufficiency. Tricuspid Valve: Normal appearance of the tricuspid valve. Tricuspid valve not well visualized. No evidence of tricuspid regurgitation. Pulmonic Valve: Normal pulmonic valve appearance. No evidence of pulmonic regurgitation. Pericardium: Normal pericardium with no significant pericardial effusion. Aorta: Normal aortic root. IVC: Normal size and normal respiratory collapse consistent with normal right atrial pressure. Pulmonary Artery: Normal pulmonary artery size. Conclusions 1.Normal left ventricular systolic function. Normal left ventricular cavity size. Normal left ventricular wall thickness. Ejection fraction is visually estimated at 65 %. Tissue Doppler/Mitral Doppler indices are consistent with impaired relaxation (Stage I diastolic dysfunction). 2.Normal right ventricular size. Normal right ventricular systolic function. 3.The left atrium is normal in size. 4.The right atrium is normal in size. 5.No significant valvular stenosis or regurgitation seen. 6.Normal pericardium with no significant pericardial effusion. Electronically Signed By: Ken Singh 10-Apr-2017 17:36:20 -0700 Patient Name: TYESHA FORTUNE Study Date: 08-Apr-2017 [id number]
== END 2017-04-10 16:38 | disposition home or self-care (01) | DRG 872 ==
LOC: FTE 14:39 → TEL 20:39
PROVIDERS: ADMIT Internal Medicine; ATTEND Internal Medicine
DX: A41.2 Sepsis due to unspecified staphylococcus (principal); K76.0 Fatty (change of) liver, not elsewhere classified; N10 Acute pyelonephritis; E87.1 Hypo-osmolality and hyponatremia; B96.20 Unspecified Escherichia coli [E. coli] as the cause of diseases classified elsewhere; E11.9 Type 2 diabetes mellitus without complications; N39.0 Urinary tract infection, site not specified; N28.89 Other specified disorders of kidney and ureter; K80.80 Other cholelithiasis without obstruction; B95.8 Unspecified staphylococcus as the cause of diseases classified elsewhere
CPT/HCPCS: 36415; 74176; 76705; 80048; 80053; 80061; 80202; 81001; 82962; 83036; 83605; 83690; 83735; 84100; 85025; 87040; 87086; 93306; 96374; 96375; J0692; J0696; J1815; J1885; J2405; J3370; J7030; J7050

== ENCOUNTER → 2017-04-12 | Outpatient (CLI) | payer MEDICAID ==
[~2017-04-12] MED LIST: CIPR500T4 PO; METF-731 PO
== END | disposition home or self-care (01) ==
LOC: DIB 14:07
PROVIDERS: ATTEND Internal Medicine
DX: Z02.9 Encounter for administrative examinations, unspecified (principal)

== ENCOUNTER 2017-04-17 11:54 | Outpatient (CLI) | payer MEDICAID ==
[~2017-04-17] VITALS: Ht 160 cm; Wt 72.3 kg
[2017-04-17 11:57] VITALS: Ht 160 cm; Wt 72.3 kg
[2017-04-17 11:58] VITALS: BP 178/86; PULSE 94; RESP 18
--- NOTE | 2017-04-17 15:45 | PN ---
Date/Time of Note Date/Time of Note DATE: 04/17/17 TIME: 15:42 Outpatient Progress Note Chief Complaint Sepsis/pyelonephritis/diabetes HPI Sepsis/patient was recently hospitalized with sepsis, no fever chill, on medication, Pyelonephritis/patient was diagnosed to have pyelonephritis, right-sided, no fever chill, no blood in the urine, no abdominal pain, no back pain, Diabetes/no polydipsia polyuria hypoglycemia, gastroparesis, patient blood sugar under control according to patient, this morning blood sugar was 121, patient on ADA diet, Review of Systems Const: No Fever, no chills, no Wt. loss, no Fatigue, normal appetite, no diaphoresis. Eyes: No pain, no discharge, no redness, no visual change, no foreign body. ENT: No pain, no bleeding, no congestion, no sore throat, no dysphagia, no discharge or rhinitis. Lymph: No adenopathy, no tender nodes, Resp: No SOB, no cough, no sputum, no wheezing, no chest pain. CV: No chest pain, no palpitaions, no TRENT, no PND, no edema. GI: Normal appetite, no pain, no nausea, no vomiting, no diarrhea, no blood, no constipation. : No frequency, no urgency, no dysuria, no hematuria, no flank pain, no discharge, no bleeding. Musc: No back pain, no neck pain, no knee pain, no restricted ROM. Skin: No rash, no skin lesions, no erythema, no laceration, no bruising, no pruritus. Neuro: No GONZALEZ, no dizziness, no syncope, no seizure, no focal-weakness. Endo: No polyuria, no polydypsia, no dry-skin, no temp-intolerance. Psych: No hallucinations, no depression, no anxiety, no suicidal ideation. Ext: No edema, no pain, no ulcer, no weakness. Physical Exam Vital Signs Date Time Temp Pulse Resp B/P Pulse Ox O2 Delivery O2 Flow Rate FiO2 04/17/17 11:58 98.0 94 18 178/86 96 Room Air General Appearance: A 46 year-old female who appears well-developed, well- nourished, in no acute distress. HEENT: Head normocephalic, atraumatic. Pupils equal, round, reactive to light and accommodate. Sclerae are no jaundice. Nasal turbinates pink without erythema or nasal discharge. Mucous membranes pink and moist without lesions. Oropharynx clear without any exudate or discharge. NECK: Supple. Trachea midline, No thyromegaly, No cervical lymphadenopathy, No mass, No carotid bruits, No JVD, Carotid pulses 2+ bilaterally. PULMONARY: Clear to auscultaion bilaterally, No retractions, Chest expansion symmetric bilaterally, no rales, no ronchi, no dulness on percussion. CARDIAC: Normal SI and S2, Regular rate and rythm, no murmur, gallop, or rub. GASTROINTESTINAL: Abdomen is soft, non-tender, Non Rigid, No distention, Positive bowel sounds x4 quadrants, Liver normal. SKIN: Warm, dry, no rash, no bruise, no echmosis. EXTREMITIES: Bilateral lower extremities normal, no edema, no phlabitus, pulse palpable, no contracture. MUSCULOSKELETAL: Spine Normal, Non-tender, Normal range of motion, No swelling, no deformity, no clubbing, or cyanosis, the patient has no edema to bilateral lower extremities, dorsalis pedis pulses palpable bilaterally. NEUROLOGIC: The patient is awake, alert, oriented, responding to yes/no questions appropriately, moving all extremities, cranial nerve intact, normal strenght, normal power, normal coordination, normal gait. Allergies Coded Allergies: No Known Allergy (Unverified , 04/04/17) H Sepsis/pyelonephritis/diabetes/hyponatremia Social Hx No smoking no drinking, Family Hx Noncontributory Patient History: Endocrine and metabolic disease 34 MOTHER Assessment/Plan Impression Sepsis resolving Pyelonephritis resolving Diabetes new onset Plan Patient education done about diabetes, and patient will bring records of blood sugar so medication we can be adjusted by primary physician, Patient to increase activity, patient to lose weight, If patient has any fever or frequency urgency or burning to inform the primary care physician, Medications Home Meds Active Scripts Metformin HCl (Metformin HCl ER) 1,000 Mg [id number], 1000 MG PO BID WITH MEALS for 90 Days, #180 TAB 5 Refills Prov:AMISHA WILKINSON MD 04/10/17 Ciprofloxacin Hcl* (Ciprofloxacin Hcl*) 500 Mg Tablet, 500 MG PO BID for 10 Days , #20 TAB Prov:AMISHA WILKINSON MD 04/10/17 Discontinued Scripts Ibuprofen* (Motrin*) 400 Mg Tab, 400 MG PO Q6, #30 TAB Prov:MATTHEW BARRERA PA-C 04/04/17 Cephalexin* (Keflex*) 500 Mg Capsule, 500 MG PO TID for 14 Days, CAP Prov:MATTHEW BARRERA PA-C 04/04/17 SIL MEMBRENO MD Apr 17, 2017 15:45
== END 2017-04-17 16:51 | disposition home or self-care (01) ==
LOC: DCC 11:54
PROVIDERS: ATTEND Internal Medicine
DX: A41.9 Sepsis, unspecified organism (principal); N12 Tubulo-interstitial nephritis, not specified as acute or chronic; E11.9 Type 2 diabetes mellitus without complications
CPT/HCPCS: G0463

== ENCOUNTER 2017-04-30 11:44 | Outpatient (CLI) | payer MEDICAID ==
[~2017-04-30] VITALS: Ht 160 cm; Wt 72.3 kg
[2017-04-30 11:45] VITALS: BP 195/81; PULSE 86; RESP 16; Ht 160 cm; Wt 72.3 kg
--- NOTE | 2017-04-30 15:16 | PN ---
Date/Time of Note Date/Time of Note DATE: 04/30/17 TIME: 15:12 Outpatient Progress Note Chief Complaint Diabetes/pyelonephritis/hypertension HPI Diabetes/no polydipsia polyuria or hypoglycemia, gastroparesis, recent blood sugar control according to the patient, Pyelonephritis/patient has a history of pyelonephritis, patient was recently hospitalized, no fever chill, no blood in the urine, no back pain, no suprapubic discomfort or distention, patient finished antibiotic, Hypertension/patient blood pressure significantly elevated, no headache dizziness lightness, no history of any hypertension, patient anxious according to the patient, and does not have any blood pressure problem, Review of Systems Const: No Fever, no chills, no Wt. loss, no Fatigue, normal appetite, no diaphoresis. Slightly obese Eyes: No pain, no discharge, no redness, no visual change, no foreign body. ENT: No pain, no bleeding, no congestion, no sore throat, no dysphagia, no discharge or rhinitis. Lymph: No adenopathy, no tender nodes, no lymphedema. Resp: No SOB, no cough, no sputum, no wheezing, no chest pain. CV: No chest pain, no palpitaions, no TRENT, no PND, no edema. GI: Normal appetite, no pain, no nausea, no vomiting, no diarrhea, no blood, no constipation. : No frequency, no urgency, no dysuria, no hematuria, no flank pain, no discharge, no bleeding. Musc: No bone/joint pain, no back pain, no neck pain, no knee pain, no restricted ROM. Skin: No rash, no skin lesions, no erythema, no laceration, no bruising, no pruritus. Neuro: No GONZALEZ, no dizziness, no syncope, no seizure, no focal-weakness. Endo: No polyuria, no polydypsia, no dry-skin, no temp-intolerance. Psych: No hallucinations, no depression, no anxiety, no suicidal ideation. Ext: No edema, no pain, no ulcer, no weakness. Physical Exam Vital Signs Date Time Temp Pulse Resp B/P Pulse Ox O2 Delivery O2 Flow Rate FiO2 04/30/17 11:45 97.8 86 16 195/81 96 Room Air General Appearance: A 46 year-old female who appears well-developed, well- nourished, in no acute distress. HEENT: Head normocephalic, atraumatic. Pupils equal, round, reactive to light and accommodate. Sclerae are no jaundice. Nasal turbinates pink without erythema or nasal discharge. Mucous membranes pink and moist without lesions. Oropharynx clear without any exudate or discharge. NECK: Supple. Trachea midline, No thyromegaly, No cervical lymphadenopathy, No mass, No carotid bruits, No JVD, Carotid pulses 2+ bilaterally. PULMONARY: Clear to auscultaion bilaterally, No retractions, Chest expansion symmetric bilaterally, no rales, no ronchi, no dulness on percussion. CARDIAC: Normal SI and S2, Regular rate and rythm, no murmur, gallop, or rub. GASTROINTESTINAL: Abdomen is soft, non-tender, Non Rigid, No distention, Positive bowel sounds x4 quadrants, Liver normal. SKIN: Warm, dry, no rash, no bruise, no echmosis. EXTREMITIES: Bilateral lower extremities normal, no edema, no phlabitus, pulse palpable, no contracture. MUSCULOSKELETAL: Spine Normal, Non-tender, Normal range of motion, No swelling, no deformity, no clubbing, or cyanosis, the patient has no edema to bilateral lower extremities, dorsalis pedis pulses palpable bilaterally. NEUROLOGIC: The patient is awake, alert, oriented, responding to yes/no questions appropriately, moving all extremities, cranial nerve intact, normal strenght, normal power, normal coordination, normal gait. Allergies Coded Allergies: No Known Allergy (Unverified , 04/04/17) Social Hx No change Family Hx No change Patient History: Endocrine and metabolic disease 34 MOTHER Assessment/Plan Impression Diabetes/ Pyelonephritis resolved Hypertension/uncontrolled Plan Patient education done about diabetes and hypertension, and also educated about pyelonephritis, if patient has any sign and symptom of infection to go to the primary care physician immediately, Patient states that patient is very nervous and that is why patient blood pressure is significantly elevated, patient does not have any blood pressure problem, patient does not want any medication at present, Patient advised to go to pharmacy and check the blood pressure daily for a few days, and send me the report, also if the blood pressure remains elevated and if she has any symptoms go to the emergency room, or primary care physician, If patient's has elevated blood pressure to come to the clinic any time, will check the blood pressure without any charges and I will see her without any charges in will write a prescription without any charges, Patient may end up with a blood pressure medication, discussed with the patient , will try to check the blood pressure again tomorrow, patient advised to come to the clinic tomorrow or go to the pharmacy and check the blood pressure and call us, I told the patient I am willing to write a prescription for blood pressure at present, patient states patient does not have any blood pressure problems so we will wait, will monitor closely Medications Home Meds Active Scripts Metformin HCl (Metformin HCl ER) 1,000 Mg [id number], 1000 MG PO BID WITH MEALS for 90 Days, #180 TAB 5 Refills Prov:AMISHA WILKINSON MD 04/10/17 Discontinued Scripts Ciprofloxacin Hcl* (Ciprofloxacin Hcl*) 500 Mg Tablet, 500 MG PO BID for 10 Days , #20 TAB Prov:AMISHA WILKINSON MD 04/10/17 SIL MEMBRENO MD Apr 30, 2017 15:16
== END 2017-04-30 17:00 | disposition home or self-care (01) ==
LOC: DCC 11:44
PROVIDERS: ATTEND Internal Medicine
DX: E11.9 Type 2 diabetes mellitus without complications (principal); I10 Essential (primary) hypertension; N12 Tubulo-interstitial nephritis, not specified as acute or chronic
CPT/HCPCS: G0463